=== PATIENT | male | born 1955 | race African-American/Black ===

== ENCOUNTER → 2016-08-15 | Outpatient (CLI) | payer MEDICAID ==
--- NOTE | 2016-08-15 09:10 | ST Modified Barium Swallow ---
Recommendation - Recommendations Recommendations: 1) ST recommends continue current diet, however pt reports self limiting due to bloating and globus sensation in chest. 2) Consider GI referal due to reported symptoms for sticking in chest, bloating immediately after eating, and "gassy all day". SUMMARY: Pt observed to have flash penetration on large sequential sips of thin by straw, however no other instances of penetration observed during study. No aspiration observed during study. Safe and effective swallow seen. No oral or pharyngeal residuals observed. Medical Diagnoses - Medical Diagnoses Medical Diagnosis Description & ICD-10 Code(s): cebtrilobular emphysema/ dysphagia Other Medical Diagnoses/Co-Morbidities: cebtrilobular emphysema, sleep apnea, COPD, HTN, oxygen dependence. - ICD-10 Tx Diagnosis Coding (1) Dysphagia, unspecified ICD-10 Code(s): R13.10 - DYSPHAGIA, UNSPECIFIED ST Modified Barium Swallow - General Date: 08/15/16 Referring Physician: Dr Shi Risks/Precautions: Falls - pt using wheelchair to get to room Date of Onset: 02/13/16 Reason for Referral: dysphagia - History History obtained from: Patient, Parent/Caregiver - pt's -: Medical - Pt reports feels "backed up" when eating. States needs to eat "standing up and leaning over". Pt also reports he feels like a "blown up balloon." Pt denies coughing or choking while eating, reports globus sensation in upper chest which he states he feels "slowly moving down." Pt reports symptoms have been ongoing for several years however "got real bad" approximately 6 months ago. Pt reports history of walking PNA within the year and bronchitis a "few weeks ago." Pt reports having an unknown study completed where they identified that he was "filled with gas". Pt reports immediately after eating he will be gassy. PMHx:cebtrilobular emphysema, sleep apnea, COPD, HTN, oxygen dependence. Medications: pt and pt's unsure of current meds being taken; able to state taking x3 meds for high blood pressure, pill for reflux, zoloft, and chantix Allergies: grass, latex - Functional Status Prior Functional Status: INDEPENDENT: feeding Current Functional Limitations: feeding - Subjective Patient/caregiver goal(s): safe swallow, r/o aspiration Cognitive-Linguistic Function: WNL Speech Intelligibility: WNL Current Nutritional Means: PO Current PO diet: Soft Current symptoms: c/o Globus sensation Pain: 2/5 - due to pain in chest - Objective Assessment: Upright, Left Lateral - Food Trials Used Food trials used: Thin liquids, Pureed, Regular The patient: Was Able to Self Feed - Oral-Motor Skills Velo-pharyngeal function: Unremarkable Laryngeal Function: Volitional Cough, Volitional Swallow - Assessment Oral prep: Normal Labial closure: Adequate Leakage: None Mastication: Adequate Lingual Movement: Normal Oral stage: Normal for this Procedure - Pharyngeal Stage Initiation of Pharyngeal Stage Reflex: Normal Decreased laryngeal elevation: No Reduced Velopharyngeal Closure: no Reduced pressure generation: No reduced tongue-based retraction: No Pre-swallow pooling in valleculae: None Pre-Swallow pooling in pyriforms: None Reduced Thyro-Hyoid approximation: No Reduced epiglottic excursion: No Reduced pharyngeal peristalsis/contraction: No Post-swallow residulas vallecular: None Post-Swallow residuals in pyriforms: None - Fall Risk Assessment Medications/Conditions that increase fall risks include: Antidepressants, sedatives, anti-arrhythmic, diuretic, benzodiazipenes, neuroleptics. BP regulation problems, cardiac problems, balance or gait deficits, neurological problems. Is patient considered at risk for falls: yes Fall Risk Actions Taken: Pt physician notified - Behavioral Observations During evaluation process patient: was pleasant, was cooperative, able to answer questions, provided medical history - Treatment / Educational Needs: Treatment/Education Needs: Treatment consisted of patient education on the role of the Speech Pathologist. Patient's plan of care and golas were communicated as well as scheduling and attendance policies. Recommendations for initial home program were shared. Patient demonstrated understanding and verbalized agreement. - Impression/Summary Laryngeal Penetration: Yes - x1, Flash Tracheal Aspiration: no Patient presents with: Normal swallow at eval - safe and effective swallow observed Risk of Aspiration: Minimal - Recommendations NPO: no Strict aspiration precautions: No Pt/Family education and followup with MD: Yes Dysphagia therapy with CERTIFIED FORKLIFT OPERATOR: no Recommended techniques: Fully Upright During Meal Information, Precautions and Recommendations: Patient (Verbal), Family Member ( Verbal) - Time Total Time: 20 - Plan of Care Strategies to optimize patient understanding include:: ongoing assessment of educational needs, implementation of educational strategies, and re-education. - - -: Thank you for the opportunity to work with this patient and his/her family. Should you have any questions about this patient's plan or progress, I can be reached at [phone]. Charge G Code? - - -: No
== END ==
LOC: RAD 07:27
PROVIDERS: ATTEND Internal Medicine Pulmonary Disease
DX: J43.2 Centrilobular emphysema (principal); J96.11 Chronic respiratory failure with hypoxia; R13.10 Dysphagia, unspecified
CPT/HCPCS: 74230

== ENCOUNTER 2016-09-16 19:36 | Emergency (ER) | payer MEDICAID ==
[2016-09-16 20:14] LABS: ABSOLUTE EOSINOPHILS # (AUTO) 0.2 10^3/uL (0.0-0.6); ABSOLUTE LYMPHOCYTES (AUTO) 2.3 10^3/uL (0.5-4.7); ABSOLUTE MONOCYTES (AUTO) 0.8 10^3/uL (0.1-1.4); ABSOLUTE NEUT (AUTO) 4.1 10^3/uL (1.7-8.2); BASOPHILS % (AUTO) 0.5 % (0-2); EOSINOPHILS % (AUTO) 2.5 % (0-6); HEMATOCRIT 44.5 % (37.9-51.0); HEMOGLOBIN 15.2 g/dL (13.5-17.0); HGB HCT DIFFERENCE 1.1; LYMPHOCYTES % (AUTO) 30.7 % (13-45); MEAN CORPUSCULAR HEMOGLOBIN 31.6 pg (27.0-33.4); MEAN CORPUSCULAR HGB CONC 34.2 g/dL (32.0-36.0); MEAN CORPUSCULAR VOLUME 92 fl (80-97); MONOCYTES % (AUTO) 10.6 % (3-13); RED BLOOD COUNT 4.82 10^6/uL (4.35-5.55); RED CELL DISTRIBUTION WIDTH 13.4 % (11.5-14.0); SEGMENTED NEUTROPHILS % (AUTO) 55.7 % (42-78); VENOUS BLOOD BASE EXCESS 2.6 mmol/L; VENOUS BLOOD HCO3 29.9 mmol/L (20-32); VENOUS BLOOD PCO2 55.7 mmHg (35-63); VENOUS BLOOD PH 7.35 (7.30-7.42); WHITE BLOOD COUNT 7.4 10^3/uL (4.0-10.5)
[2016-09-16 20:32] LABS: ALANINE AMINOTRANSFERASE 55 U/L (21-72); ALBUMIN 4.7 g/dL (3.5-5.0); ALKALINE PHOSPHATASE 60 U/L (38-126); ANION GAP 17 (5-19); ASPARTATE AMINO TRANSFERASE 35 U/L (17-59); BILIRUBIN,TOTAL 0.3 mg/dL (0.2-1.3); BLOOD UREA NITROGEN 11 mg/dL (7-20); CALCIUM 10.1 mg/dL (8.4-10.2); CARBON DIOXIDE 28 mmol/L (22-30); CHLORIDE 96 mmol/L (98-107); CREATININE RESULT 0.69 mg/dL (0.52-1.25); GLUCOSE 118 mg/dL (75-110); MAGNESIUM 1.9 mg/dL (1.6-2.3); POTASSIUM 3.6 mmol/L (3.6-5.0); SODIUM 141.4 mmol/L (137-145)
--- NOTE | 2016-09-16 20:44 | ER Document Report ---
ED General - General TRAVEL OUTSIDE OF THE [place] IN LAST 30 DAYS: No <BALJINDER PINEDO - Last Filed: 09/16/16 20:44> <LAURI GARCIA - Last Filed: 09/16/16 22:08> - General Chief Complaint: Altered Mental Status Stated Complaint: ALTERED MENTAL STATUS - Related Data Allergies/Adverse Reactions: Grass Pollen-[place], Standard * [Grass Pollen-[place], Standard] Allergy ( Severe, Verified 05/10/16 09:22) ITCHING latex [Latex] Adverse Reaction (Severe, Verified 05/10/16 09:22) ITCHING Past Medical History - Social History Smoking Status: Current Every Day Smoker Family History: Reviewed & Not Pertinent Patient has suicidal ideation: No Patient has homicidal ideation: No - Past Medical History Cardiac Medical History: Reports: Hx Coronary Artery Disease - HIGH CHOLESTEROL , Hx Hypertension Denies: Hx Heart Attack Pulmonary Medical History: Reports: Hx Bronchitis, Hx COPD, Hx Pneumonia Denies: Hx Asthma Neurological Medical History: Denies: Hx Cerebrovascular Accident, Hx Seizures Renal/ Medical History: Denies: Hx Peritoneal Dialysis GI Medical History: Denies: Hx Hepatitis, Hx Hiatal Hernia, Hx Ulcer Musculoskeltal Medical History: Denies Hx Arthritis Infectious Medical History: Denies: Hx Hepatitis Past Surgical History: Denies: Hx Open Heart Surgery, Hx Pacemaker - Immunizations Hx Diphtheria, Pertussis, Tetanus Vaccination: No <BALJINDER PINEDO - Last Filed: 09/16/16 20:44> Course - Laboratory Result Diagrams: 09/16/16 19:46 09/16/16 19:46 <BALJINDER PINEDO - Last Filed: 09/16/16 20:44> - Laboratory Result Diagrams: 09/16/16 19:46 09/16/16 19:46 <LAURI GARCIA - Last Filed: 09/16/16 22:08> - Re-evaluation Re-evalutation: 09/16/16 20:44 I personally performed the services described in the documentation, reviewed and edited the documentation which was dictated to my scribe in my presence, and it accurately records my words and actions. Patient presents via EMS nurse comes to get me at bedside stating patient has altered mental status and I immediately came to the bedside for evaluation patient was hooked up to oxygen but no oxygen attached 93% on room air. Patient smells of alcohol but is awake alert GCS of 15. He says breathing gets really bad he remembers being pulled over by the police. The story that I'm getting is that a bystander saw him swerving called the police and the police chased him down pulled over and had him come to the [facility] for evaluation. Initial vitals on the chart do not match what I'm seeing at the bedside. The pulse ox was written down to 60% on room air patient is awake alert again 93% on no oxygen respiratory rate is accurate 20 heart rate varies from 8200. Asking her to do a manual blood pressure blood pressure at discharge documented as 147/105 at the bedside at 136/86. Patient has a history of severe COPD on 3 L of oxygen 24 7 and CPAP. He says he also takes Ativan for anxiety but ran out of it was postictal it filled today. He does smell of alcohol but denies taking any alcohol tonight. He also denies being on any pain medication or other altering substances. 09/16/16 22:05 Charge nurse came to me and stated that 8 walked out of the department and left. I last assessment of him at 2039 for was that he was awake alert with a GCS of 15 and able to make his own decisions. He is not under IVC I cannot have him arrested and brought back to the emergency Department at this point. I performed an initial medical screening examination on him. Vitals were stable no acute concerns for cardiac event concerns for bleed into the brain. 09/16/16 22:07 (LAURI GARCIA) - Vital Signs Vital signs: Temp Pulse Resp BP Pulse Ox 18 94 09/16/16 20:01 09/16/16 20:01 (BALJINDER PINEDO) (LAURI GARCIA) - Laboratory Laboratory results interpreted by me: 09/16/16 09/16/16 19:46 21:30 Carbonic Acid 1.56 H ABG pCO2 51.8 H ABG pO2 110.2 H ABG HCO3 29.2 H ABG Total CO2 30.8 H Chloride 96 L Glucose 118 H (BALJINDER PINEDO) (LAURI GARCIA) - EKG Interpretation by Me Additional EKG results interpreted by me: 09/16/16 20:46 EKG shows A. fib at [address] segment elevation or depression no acute clinical concerns for MD (LAURI GARCIA) Discharge <BALJINDER PINEDO - Last Filed: 09/16/16 20:44> <LAURI GARCIA - Last Filed: 09/16/16 22:08> - Discharge Clinical Impression: elopement, brought in via ems evaluation Condition: Stable Disposition: ELOPED
[2016-09-16 20:56] LABS: CREATINE KINASE MB 2.02 ng/mL (<4.55)
--- NOTE | 2016-09-16 21:04 | EKG REPORT ---
SEVERITY:- ABNORMAL ECG - NSR WITH PAC LVH BY VOLTAGE CONSIDER ANTEROSEPTAL INFARCT : Confirmed by: Roderick Lopez MD 16-Sep-2016 21:03:41
[2016-09-16 22:00] LABS: ARTERIAL BLOOD BASE EXCESS 2.7 mmol/L; ARTERIAL BLOOD O2 SATURATION 97.8 % (94-98)
--- NOTE | 2016-09-16 22:10 | ER Document Report ---
ED General - General Mode of Arrival: Medic Information source: Patient, Emergency Med Personnel TRAVEL OUTSIDE OF THE [place] IN LAST 30 DAYS: No - HPI Patient complains to provider of: Difficulty Breathing Onset: This evening Associated symptoms: Other - see above <BALJINDER PINEDO - Last Filed: 09/16/16 23:52> <LAURI GARCIA - Last Filed: 09/17/16 00:07> - General Chief Complaint: Altered Mental Status Stated Complaint: ALTERED MENTAL STATUS Notes: 61 year old male with history of hypertension and COPD presents to the ED via EMS in an altered mental status after being found weaving through traffic by [employer] earlier this evening. Patient states that he remembers being brought to the ED. Patient reports that he "sometimes gets really bad with my health." Patient reports that his breathing has improved since arriving to the ED. Patient on 2- 3L of oxygen around the clock. Patient is also on CPAP at night. Patient claims he takes his hypertensive medication as directed. Patient is also on Ativan and states that he last took it a "couple days ago." Patient denies being on any pain medications. Patient's primary care provider is Dr. Newell. (BALJINDER PINEDO) - Related Data Allergies/Adverse Reactions: Grass Pollen-[place], Standard * [Grass Pollen-[place], Standard] Allergy ( Severe, Verified 05/10/16 09:22) ITCHING latex [Latex] Adverse Reaction (Severe, Verified 05/10/16 09:22) ITCHING Past Medical History - General Information source: Patient, Emergency Med Personnel - Social History Smoking Status: Current Every Day Smoker Frequency of alcohol use: Occasional Family History: Reviewed & Not Pertinent Patient has suicidal ideation: No Patient has homicidal ideation: No - Past Medical History Cardiac Medical History: Reports: Hx Coronary Artery Disease - HIGH CHOLESTEROL , Hx Hypertension Pulmonary Medical History: Reports: Hx Bronchitis, Hx COPD, Hx Pneumonia Renal/ Medical History: Denies: Hx Peritoneal Dialysis - Immunizations Hx Diphtheria, Pertussis, Tetanus Vaccination: No <BALJINDER PINEDO - Last Filed: 09/16/16 23:52> Review of Systems - Review of Systems Constitutional: No symptoms reported EENT: No symptoms reported Cardiovascular: No symptoms reported Respiratory: See HPI, Short of breath Gastrointestinal: No symptoms reported Genitourinary: No symptoms reported Male Genitourinary: No symptoms reported Musculoskeletal: No symptoms reported Skin: No symptoms reported Hematologic/Lymphatic: No symptoms reported Neurological/Psychological: No symptoms reported -: Yes All other systems reviewed and negative <BALJINDER PINEDO - Last Filed: 09/16/16 23:52> Physical Exam - General General appearance: Alert, Other - Smells of ETOH. Patient will not comment on driving episode that occurred this evening. In distress: None - HEENT Head: Normocephalic, Atraumatic Eyes: Normal Extraocular movements intact: Yes Pupils: PERRL - Respiratory Respiratory status: No respiratory distress Breath sounds: Wheezing - tight expiratory wheezes. No: Normal - Cardiovascular Rhythm: Regular Heart sounds: Normal auscultation - Abdominal Inspection: Normal - Back Back: Normal - Extremities General upper extremity: Normal inspection, Normal ROM General lower extremity: Normal inspection, Normal ROM, Normal weight bearing - Neurological Neuro grossly intact: Yes Cognition: Normal Orientation: AAOx4 Guevara Coma Scale Eye Opening: Spontaneous Guevara Coma Scale Verbal: Oriented [place] Coma Scale Motor: Obeys Commands [place] Coma Scale Total: 15 Speech: Normal - Psychological Associated symptoms: Normal affect, Normal mood - Skin Skin Temperature: Warm Skin Moisture: Dry Skin Color: Normal <BALJINDER PINEDO - Last Filed: 09/16/16 23:52> <LAURI GARCIA - Last Filed: 09/17/16 00:07> - Vital signs Vitals: Resp Pulse Ox 25 H 99 09/16/16 19:38 09/16/16 19:38 (BALJINDER PINEDO) (LAURI GARCIA) Course - Laboratory Result Diagrams: 09/16/16 19:46 09/16/16 19:46 <BALJINDER PINEDO - Last Filed: 09/16/16 23:52> - Laboratory Result Diagrams: 09/16/16 19:46 09/16/16 19:46 <LAURI GARCIA - Last Filed: 09/17/16 00:07> - Re-evaluation Re-evalutation: 09/17/16 00:00 I personally performed the services described in the documentation, reviewed and edited the documentation which was dictated to my scribe in my presence, and it accurately records my words and actions. Patient initially seen and evaluated and then left the department came back to the emergency department approximately 10 minutes later. Patient is intoxicated was found swerving on the road please EMS brought him in. He is a smoker chronic COPD on 3 L of oxygen at home is currently satting 92% on 3 L says he has not oxygen take at home. I nose cough not taking his allergy medication he denies actively being short of breath and is insistent that he is going home at this point he is call his for a ride. He denies any chest pain or pressure heart rate is slightly elevated and irregular patient does not want medication for that noncompliant on home medication for history of that. This point patient is awake alert able to make his own decision refuses to stay in the department any longer says that his doesn't pick him up is critical for CAD. Does not know worsening of his at we'll have to discuss that with the police in a.m. (LAURI GARCIA) - Vital Signs Vital signs: Temp Pulse Resp BP Pulse Ox 18 94 09/16/16 20:01 09/16/16 20:01 (BALJINDER PINEDO) (LAURI GACRIA) - Laboratory Laboratory results interpreted by me: 09/16/16 09/16/16 19:46 21:30 Carbonic Acid 1.56 H ABG pCO2 51.8 H ABG pO2 110.2 H ABG HCO3 29.2 H ABG Total CO2 30.8 H Chloride 96 L Glucose 118 H (BALJINDER PINEDO) (LAURI GARCIA) Discharge <BALJINDER PINEDO - Last Filed: 09/16/16 23:52> <LAURI GARCIA - Last Filed: 09/17/16 00:07> - Discharge Clinical Impression: COPD exacerbation Afib Qualifiers: Atrial fibrillation type: chronic Qualified Code(s): I48.2 - Chronic atrial fibrillation Elevated ETOH level Qualifiers: Blood alcohol level: 240 mg/100 ml or more Qualified Code(s): Y90.8 - Blood alcohol level of 240 mg/100 ml or more Condition: Stable Disposition: HOME, SELF-CARE Additional Instructions: Chronic Obstructive Lung Disease You have chronic obstructive lung disease (COPD). The symptoms come from emphysema (damage to small airways, with trapping of air in large sacks in the lung) and chronic bronchitis (repeated infection and damage to larger airways). The cause is almost always cigarette smoking, although dust exposure, asthma, and infections contribute. You should avoid fumes, dust, and smoke (especially tobacco smoke). Your condition will flare from time to time. There is no cure, but the symptoms can be treated. Bronchodilators (asthma medicine) are often helpful. Antibiotics help when infection is present. When shortness of breath is severe, we may prescribe cortisone medication. If medicine doesn't help enough, we can arrange for you to have an oxygen tank at home. Notify your doctor at once if sputum becomes thick, foul, or bloody, if you develop a fever or chest pain, or if your shortness of breath worsens. Atrial Fibrillation Atrial fibrillation is an abnormal heart rhythm, caused by irregular electrical circuits in the upper heart chamber. It can be caused by heart valve disease, hardening of the arteries, or metabolic problems such as thyroid disease, or may occur without a clear cause. Atrial fibrillation may occur only occasionally, or may be chronic. Atrial fibrillation often results in a very fast heart rate, with palpitations, lightheadedness, and shortness of breath. Treatment is to slow the abnormally fast rate, and to convert the rhythm back to normal, if possible. Many patients stay in atrial fibrillation for years without symptoms or complications. Your doctor will decide whether you can be converted back to a normal heart rhythm. Contact the doctor or emergency medical system at once if you develop chest pain, shortness of breath, or severe lightheadedness, or if you develop any disturbance of consciousness, problems with speech, or localized weakness. etoh abuse Prescriptions: Prednisone [Deltasone 20 mg Tablet] 3 tab PO DAILY 5 Days Forms: Smoking Cessation Education Referrals: [facility] [Provider Group] - Follow up tomorrow (in 1-2 days return to er sooner for increasing worsening or new symptoms) Scribe Documentation - Scribe Written by Karrie:: Karrie Malone, 09/16/2016, [id number] acting as scribe for :: Clement <BALJINDER PINEDO - Last Filed: 09/16/16 23:52>
[2016-09-16] MEDS ORDERED: METHYLPREDNISOLONE INJ 125 MG/2 ML SDV IV ONE (23:00)
[2016-09-17] MEDS ORDERED: METHYLPREDNISOLONE INJ 125 MG/2 ML SDV ONE (00:46)
[2016-09-17 00:51] VITALS: BP 121/89
== END 2016-09-17 00:50 | disposition home or self-care (01) ==
LOC: ER 19:36
DX: J44.1 Chronic obstructive pulmonary disease with (acute) exacerbation (principal); I48.2 Chronic atrial fibrillation; Y90.8 Blood alcohol level of 240 mg/100 ml or more; R41.82 Altered mental status, unspecified; F17.200 Nicotine dependence, unspecified, uncomplicated; R06.00 Dyspnea, unspecified; I10 Essential (primary) hypertension; E78.00 Pure hypercholesterolemia, unspecified; Z99.81 Dependence on supplemental oxygen; Z91.040 Latex allergy status
CPT/HCPCS: 93005; 99285; 96374; 36415; 82553; 80307; 82803 ×2; 82550; 83735; 85025; 80053; 84484; 83880; 71010; 70450; 93010; 36600; J2930

== ENCOUNTER → 2016-11-26 | Outpatient (CLI) | payer MEDICAID | LOC: RAD 07:37 | PROVIDERS: ATTEND Family Medicine | DX: R10.11 Right upper quadrant pain (principal) | CPT/HCPCS: 78227; A9537; Q9969; J2805 ==

== ENCOUNTER → 2018-01-14 | Outpatient (CLI) | payer MEDICARE, MEDICAID ==
--- NOTE | 2018-01-14 12:52 | RADIOLOGY REPORT (SQ) ---
EXAM DESCRIPTION: RIBS LEFT W/PA CHEST COMPLETED DATE/TIME: 01/14/2018 11:53 am REASON FOR STUDY: PLEURODYNIA R07.81 PLEURODYNIA COMPARISON: Two-view chest 09/16/2016 CT chest 06/03/2016 TECHNIQUE: Frontal view of the chest and additional views of the left lower ribs acquired. NUMBER OF VIEWS: PA chest, left rib detail five views LIMITATIONS: None. FINDINGS: FRONTAL CXR: No pneumothorax. No pleural effusion. No atelectasis or infiltrates. Upper lobes are hyperlucent from obstructive disease. Cardiac silhouette size, raghav unremarkable RIBS: No displaced rib fractures. No lytic or blastic bony lesions. Bones are osteopenic OTHER: No other significant finding. IMPRESSION: NO PNEUMOTHORAX. NO ACUTE DISPLACED LEFT RIB FRACTURES. COMMENT: SITE OF TRAUMA/COMPLAINT MARKED/STAMP COMPLETED: Yes TECHNICAL DOCUMENTATION: JOB ID: [id number] [employer]- All Rights Reserved Reading location - IP/workstation name: [email or web address]
== END ==
LOC: RAD 11:30
PROVIDERS: ATTEND Family Medicine
DX: R07.81 Pleurodynia (principal)

== ENCOUNTER → 2018-02-20 | Outpatient (CLI) | payer MEDICARE, MEDICAID ==
--- NOTE | 2018-02-20 11:29 | RADIOLOGY REPORT (SQ) ---
EXAM DESCRIPTION: U/S RETROPERITON LTD COMPLETED DATE/TIME: 02/20/2018 10:57 am REASON FOR STUDY: AAA (I71.4) I71.4 ABDOMINAL AORTIC ANEURYSM, WITHOUT RUPTURE COMPARISON: None. TECHNIQUE: Static and dynamic grayscale images acquired of the aorta and stored on PACs. Selected co francisco Doppler and spectral images recorded. LIMITATIONS: None. FINDINGS: AORTIC CALIBER MAXIMAL PROXIMAL: 3.1 x 3.3 x 2.7 cm. MID: 3.7 x 4.6 x 3.7 cm. DISTAL: Obscured by bowel gas. Cm. ILIAC DIAMETER RIGHT: Not able be seen. Cm. LEFT: Not able to be seen. Cm. OTHER: No other significant finding. IMPRESSION: Aneurysm of the mid abdominal aorta. COMMENT: Aorta screening examinations categories: Negative - less than 3 cm. TECHNICAL DOCUMENTATION: JOB ID: [id number] [employer]- All Rights Reserved Reading location - IP/workstation name: [email or web address]
== END ==
LOC: RAD 10:11
PROVIDERS: ATTEND Family Medicine
DX: I71.4 Abdominal aortic aneurysm, without rupture (principal)
CPT/HCPCS: 76775

== ENCOUNTER 2019-09-04 11:17 | Emergency (ER) | payer MEDICARE, MEDICAID ==
--- NOTE | 2019-09-04 11:28 | ER Document Report ---
ED Medical Screen (RME) - General Chief Complaint: Breathing Difficulty Stated Complaint: DIFFICULTY BREATHING Time Seen by Provider: 09/04/19 11:26 Primary Care Provider: EVELYN HIGUERA DO [Primary Care Provider] - Follow up as needed Mode of Arrival: Wheelchair Information source: Patient Notes: 64-year-old male presented to ED for complaint of shortness of breath. He is on 2.5 L of nasal cannula O2. His pulse ox is 95% on this oxygen. Pulse is 78 at this time. He states he is having a very moist heavy cough. He has emphysema COPD but he states he just recently got discharged for 21-day rehab for alcohol. He has not had any alcohol or cigarettes since he came out 6 days ago but has not had any alcohol or cigarettes for 30 days. Patient is alert and oriented he is pursed breathing and is very short of breath. I have greeted and performed a rapid initial assessment of this patient. A comprehensive ED assessment and evaluation of the patient, analysis of test results and completion of medical decision making process will be conducted by an additional ED providers. TRAVEL OUTSIDE OF THE [place] IN LAST 30 DAYS: No - Related Data Allergies/Adverse Reactions: Grass Pollen-[place], Standard * [Grass Pollen-[place], Standard] Allergy (Severe, Verified 05/10/16 09:22) ITCHING latex [Latex] Adverse Reaction (Severe, Verified 05/10/16 09:22) ITCHING Past Medical History - Past Medical History Cardiac Medical History: Reports: Hx Coronary Artery Disease - HIGH CHOLESTEROL, Hx Hypertension Denies: Hx Heart Attack Pulmonary Medical History: Reports: Hx Bronchitis, Hx COPD, Hx Pneumonia Denies: Hx Asthma Neurological Medical History: Denies: Hx Cerebrovascular Accident, Hx Seizures Renal/ Medical History: Denies: Hx Peritoneal Dialysis GI Medical History: Denies: Hx Hepatitis, Hx Hiatal Hernia, Hx Ulcer Musculoskeltal Medical History: Denies Hx Arthritis Infectious Medical History: Denies: Hx Hepatitis Past Surgical History: Denies: Hx Open Heart Surgery, Hx Pacemaker - Immunizations Hx Diphtheria, Pertussis, Tetanus Vaccination: No Physical Exam - Vital signs Vitals: Temp Pulse Resp BP Pulse Ox 97.8 F 79 32 H 128/75 H 92 09/04/19 11:22 09/04/19 11:22 09/04/19 11:22 09/04/19 11:22 09/04/19 11:22 Course - Vital Signs Vital signs: Temp Pulse Resp BP Pulse Ox 97.8 F 79 32 H 128/75 H 92 09/04/19 11:22 09/04/19 11:22 09/04/19 11:22 09/04/19 11:22 09/04/19 11:22 Doctor's Discharge - Discharge Referrals: EVELYN HIGUERA DO [Primary Care Provider] - Follow up as needed
--- NOTE | 2019-09-04 12:07 | RADIOLOGY REPORT (SQ) ---
EXAM DESCRIPTION: CHEST 2 VIEWS COMPLETED DATE/TIME: 09/04/2019 11:57 am REASON FOR STUDY: Cough congestion short of breath COMPARISON: 12/30/2013. NUMBER OF VIEWS: Two view. TECHNIQUE: Frontal and lateral radiographic views of the chest acquired. LIMITATIONS: None. FINDINGS: LUNGS AND PLEURA: No opacities, masses or pneumothorax. No pleural effusion. Attenuated bl ood vessels and flattened magnolia-diaphragms. MEDIASTINUM AND HILAR STRUCTURES: No masses. No contour abnormalities. HEART AND VASCULAR STRUCTURES: Heart normal in size and contour. No evidence for failure. BONES: No acute findings. HARDWARE: None in the chest. OTHER: No other significant finding. IMPRESSION: COPD. NO ACUTE RADIOGRAPHIC FINDING IN THE CHEST. TECHNICAL DOCUMENTATION: JOB ID: [id number] [employer]- All Rights Reserved Reading location - IP/workstation name: [email or web address]
[2019-09-04 12:24] LABS: ABSOLUTE EOSINOPHILS # (AUTO) 0.3 10^3/uL (0.0-0.6); ABSOLUTE LYMPHOCYTES (AUTO) 1.1 10^3/uL (0.5-4.7); ABSOLUTE MONOCYTES (AUTO) 0.6 10^3/uL (0.1-1.4); ABSOLUTE NEUT (AUTO) 3.5 10^3/uL (1.7-8.2); BASOPHILS % (AUTO) 0.9 % (0-2); EOSINOPHILS % (AUTO) 5.5 % (0-6); HEMATOCRIT 40.5 % (37.9-51.0); HEMOGLOBIN 13.3 g/dL (13.5-17.0); LYMPHOCYTES % (AUTO) 19.1 % (13-45); MEAN CORPUSCULAR HEMOGLOBIN 29.3 pg (27.0-33.4); MEAN CORPUSCULAR HGB CONC 32.8 g/dL (32.0-36.0); MEAN CORPUSCULAR VOLUME 90 fl (80-97); MONOCYTES % (AUTO) 11.2 % (3-13); PLATELET COUNT 286 10^3/uL (150-450); RED BLOOD COUNT 4.52 10^6/uL (4.35-5.55); RED CELL DISTRIBUTION WIDTH 14.1 % (11.5-14.0); SEGMENTED NEUTROPHILS % (AUTO) 63.3 % (42-78); TOTAL CELLS COUNTED % (AUTO) 100 %; WHITE BLOOD COUNT 5.5 10^3/uL (4.0-10.5)
[2019-09-04 12:39] LABS: ALBUMIN 4.3 g/dL (3.5-5.0); ALKALINE PHOSPHATASE 66 U/L (38-126); ASPARTATE AMINO TRANSFERASE 25 U/L (17-59); BILIRUBIN,DIRECT 0.3 mg/dL (0.0-0.4); BILIRUBIN,TOTAL 0.3 mg/dL (0.2-1.3); BLOOD UREA NITROGEN 15 mg/dL (7-20); CALCIUM 9.6 mg/dL (8.4-10.2); CHLORIDE 88 mmol/L (98-107); GLUCOSE 87 mg/dL (75-110)
[2019-09-04 12:45] LABS: ANION GAP 10 (5-19)
[2019-09-04 12:49] LABS: CARBON DIOXIDE 40 mmol/L (22-30)
[2019-09-04 14:01] LABS: APPEARANCE,URINE CLEAR; BILIRUBIN,URINE NEGATIVE (NEGATIVE); COLOR,URINE YELLOW; GLUCOSE, URINE NEGATIVE (NEGATIVE); KETONES,URINE NEGATIVE (NEGATIVE); PROTEIN,URINE NEGATIVE (NEGATIVE); URINE SPECIFIC GRAVITY 1.018; UROBILINOGEN,URINE NEGATIVE mg/dL (<2.0)
[2019-09-04] MEDS ORDERED: IPRATROPIUM/ALBUTEROL 0.5-2.5 MG/3 ML AMPUL NEB ONE (14:39)
[2019-09-04] MEDS ORDERED: METHYLPREDNISOLONE INJ 125 MG/2 ML SDV IV ONE (14:40)
--- NOTE | 2019-09-04 14:43 | ER Document Report ---
ED Respiratory Problem - General Chief Complaint: Breathing Difficulty Stated Complaint: DIFFICULTY BREATHING Time Seen by Provider: 09/04/19 11:26 Primary Care Provider: EVELYN HIGUERA DO [Primary Care Provider] - Follow up as needed Mode of Arrival: Wheelchair Notes: Patient is a 64-year-old male who presents to the emergency department with a chief complaint of shortness of breath. Patient started feeling short of breath 4 days ago. Patient is oxygen dependent on 2 L nasal cannula. Patient has history of COPD. He has had a cough since he started feeling short of breath. Patient states that he has a nebulizer at home, but it is currently in storage and has not been able to give himself any breathing treatments. He is currently on Symbicort. He was recently seen for alcohol rehab. He was there for 21 days. TRAVEL OUTSIDE OF THE [place] IN LAST 30 DAYS: No - Related Data Allergies/Adverse Reactions: Grass Pollen-[place], Standard * [Grass Pollen-[place], Standard] Allergy (Severe, Verified 09/04/19 11:26) ITCHING latex [Latex] Adverse Reaction (Severe, Verified 09/04/19 11:26) ITCHING Past Medical History - General Information source: Patient - Social History Smoking Status: Never Smoker Chew tobacco use (# tins/day): No Frequency of alcohol use: None Drug Abuse: None Family History: Reviewed & Not Pertinent Patient has suicidal ideation: No Patient has homicidal ideation: No - Past Medical History Cardiac Medical History: Reports: Hx Coronary Artery Disease - HIGH CHOLESTEROL, Hx Hypertension Denies: Hx Heart Attack Pulmonary Medical History: Reports: Hx Bronchitis, Hx COPD, Hx Pneumonia Denies: Hx Asthma Neurological Medical History: Denies: Hx Cerebrovascular Accident, Hx Seizures Renal/ Medical History: Denies: Hx Peritoneal Dialysis GI Medical History: Denies: Hx Hepatitis, Hx Hiatal Hernia, Hx Ulcer Musculoskeletal Medical History: Denies Hx Arthritis Infectious Medical History: Denies: Hx Hepatitis Past Surgical History: Denies: Hx Open Heart Surgery, Hx Pacemaker - Immunizations Hx Diphtheria, Pertussis, Tetanus Vaccination: No Physical Exam - Vital signs Vitals: Temp Pulse Resp BP Pulse Ox 97.8 F 79 32 H 128/75 H 92 09/04/19 11:22 09/04/19 11:22 09/04/19 11:22 09/04/19 11:22 09/04/19 11:22 Course - Vital Signs Vital signs: Temp Pulse Resp BP Pulse Ox 97.8 F 79 32 H 128/75 H 92 09/04/19 11:22 09/04/19 11:22 09/04/19 11:22 09/04/19 11:22 09/04/19 11:22 - Laboratory Result Diagrams: 09/04/19 12:01 09/04/19 12:01 Laboratory results interpreted by me: 09/04/19 09/04/19 09/04/19 12:01 12:01 13:38 Hgb 13.3 L RDW 14.1 H Chloride 88 L Carbon Dioxide 40 H* Urine Ascorbic Acid 40 H Discharge - Discharge Referrals: EVELYN HIGUERA DO [Primary Care Provider] - Follow up as needed
[2019-09-04 15:30] LABS: ARTERIAL BLOOD BASE EXCESS 14.6 mmol/L; ARTERIAL BLOOD FIO2 3.5L; ARTERIAL BLOOD H2CO3 2.01 mmol/L (1.05-1.35); ARTERIAL BLOOD HCO3 42.2 mmol/L (20-24); ARTERIAL BLOOD O2 SATURATION 94.4 % (94-98); ARTERIAL BLOOD PCO2 66.8 mmHg (35-45); ARTERIAL BLOOD PH 7.42 (7.35-7.45); ARTERIAL BLOOD PO2 73.2 mmHg (80-100); ARTERIAL BLOOD TOTAL CO2 44.2 mmol/L (23-27)
--- NOTE | 2019-09-04 15:32 | ER Document Report ---
ED General - General Chief Complaint: Breathing Difficulty Stated Complaint: DIFFICULTY BREATHING Time Seen by Provider: 09/04/19 11:26 Primary Care Provider: EVELYN NEWELL DO [Primary Care Provider] - Follow up as needed Mode of Arrival: Wheelchair TRAVEL OUTSIDE OF THE [place] IN LAST 30 DAYS: No - HPI Notes: Mr. Contreras is a 64-year-old male presenting with a chief complaint of breathing difficulties. This man has a longstanding history of COPD with oxygen dependency 3 L/min. He is followed by Dr. Newell. He just got out of alcohol rehab where he has been for the last 21 days. He has developed a dry cough and increasing dyspnea on exertion and now some mild dyspnea at rest. He denies chest pain. He is not producing any sputum. He denies fever or chills. Patient is a past smoker. He was previously taking DuoNeb treatments at home bu t his nebulizer machine was packed up and he does not have access to it currently because he is in the process of moving. - Related Data Allergies/Adverse Reactions: Grass Pollen-[place], Standard * [Grass Pollen-[place], Standard] Allergy (Severe, Verified 09/04/19 11:26) ITCHING latex [Latex] Adverse Reaction (Severe, Verified 09/04/19 11:26) ITCHING Past Medical History - General Information source: Patient, Relative - Social History Smoking Status: Never Smoker Chew tobacco use (# tins/day): No Frequency of alcohol use: None Drug Abuse: None Family History: Reviewed & Not Pertinent Patient has suicidal ideation: No Patient has homicidal ideation: No - Past Medical History Cardiac Medical History: Reports: Hx Coronary Artery Disease - HIGH CHOLESTEROL, Hx Hypertension Denies: Hx Heart Attack Pulmonary Medical History: Reports: Hx Bronchitis, Hx COPD, Hx Pneumonia Denies: Hx Asthma Neurological Medical History: Denies: Hx Cerebrovascular Accident, Hx Seizures Renal/ Medical History: Denies: Hx Peritoneal Dialysis GI Medical History: Denies: Hx Hepatitis, Hx Hiatal Hernia, Hx Ulcer Musculoskeletal Medical History: Denies Hx Arthritis Infectious Medical History: Denies: Hx Hepatitis Past Surgical History: Denies: Hx Open Heart Surgery, Hx Pacemaker - Immunizations Hx Diphtheria, Pertussis, Tetanus Vaccination: No Review of Systems - Review of Systems Notes: Constitutional: Negative for fever. HENT: Negative for sore throat. Eyes: Negative for visual changes. Cardiovascular: Negative for chest pain. Respiratory: As per HPI. Gastrointestinal: Negative for abdominal pain, vomiting or diarrhea. Genitourinary: Negative for dysuria. Musculoskeletal: Negative for back pain. Skin: Negative for rash. Neurological: Negative for headaches, weakness or numbness. 10 point ROS negative except as marked above and in HPI. Physical Exam - Vital signs Vitals: Temp Pulse Resp BP Pulse Ox 97.8 F 79 32 H 128/75 H 92 09/04/19 11:22 09/04/19 11:22 09/04/19 11:22 09/04/19 11:22 09/04/19 11:22 - Notes Notes: GENERAL: Male patient of approximately stated age who appears mildly dyspneic. SKIN: Good turgor no rashes. HEAD: Normocephalic atraumatic. EYES: PERRLA. EOMI. Conjunctivae and sclerae clear. EARS: CANALS AND TMS CLEAR. NOSE: CLEAR. MOUTH: Moist mucosa. Good dentition. No stridor or edema. No drooling. NECK: Supple. No masses or thyromegaly. No adenopathy. Carotids 2+ without bruits. No JVD. BACK: Symmetrical without tenderness. CHEST: Rattling cough. Mildly tachypneic. Scattered faint wheezes and rhonchi bilaterally.. HEART: Regular rhythm. No murmur gallop or rub. ABDOMEN: Soft nontender without masses, organomegaly or rebound. Bowel sounds normally active. No bruits. GENITALIA: Deferred. EXTREMITIES: 1+ bilateral pretibial edema. No calf tenderness. Cap refill less than 1.5 seconds. Dorsalis pedis and posterior tibial pulses 3+ and symmetrical. NEUROLOGICAL: GCS 15. Alert and oriented x3. Normal gait. Fluent speech. Cranial nerves II through XII intact. Sensorimotor and cerebellar normal. Normal tone. PSYCHIATRIC: Appropriate affect. Course - Re-evaluation Re-evalutation: 09/04/19 15:32 Patient is receiving IV Solu-Medrol and DuoNeb treatment. ABG pending. 09/04/19 16:48 Patient feels much better after IV steroids and DuoNeb treatment. He has minimal faint wheezes now and has good saturation on his usual 3.5 L of O2. His arterial blood gas shows pH of 7.42 with PCO2 of 66 and a PO2 of 76 who has some chronic respiratory failure. His troponin is normal. His BNP is normal. I am going to get him a prescription for an albuterol metered-dose inhaler and some oral prednisone sending home to follow-up with his PMD. - Vital Signs Vital signs: Temp Pulse Resp BP Pulse Ox 97.8 F 79 19 137/91 H 96 09/04/19 11:22 09/04/19 11:22 09/04/19 16:06 09/04/19 16:06 09/04/19 16:11 - Laboratory Result Diagrams: 09/04/19 12:01 09/04/19 12:01 Laboratory results interpreted by me: 09/04/19 09/04/19 09/04/19 12:01 12:01 13:38 Hgb 13.3 L RDW 14.1 H Carbonic Acid ABG pCO2 ABG pO2 ABG HCO3 ABG Total CO2 Chloride 88 L Carbon Dioxide 40 H* Urine Ascorbic Acid 40 H 09/04/19 15:13 Hgb RDW Carbonic Acid 2.01 H ABG pCO2 66.8 H ABG pO2 73.2 L ABG HCO3 42.2 H ABG Total CO2 44.2 H Chloride Carbon Dioxide Urine Ascorbic Acid - Diagnostic Test Radiology reviewed: Reports reviewed - Per radiologist plain film of the chest s hows COPD with no focal infiltrate. - EKG Interpretation by Me Additional EKG results interpreted by me: 09/04/19 16:46 Twelve-lead EKG from 1601 hrs. reviewed contemporaneously by me. This shows a normal sinus rhythm with an old anteroseptal DC and no acute ST changes. Rate is 85 and his QRS axis is 49 degrees. Discharge - Discharge Clinical Impression: COPD exacerbation Chronic respiratory failure Qualifiers: Respiratory failure complication: hypoxia and hypercapnia Qualified Code(s): J96.11 - Chronic respiratory failure with hypoxia; J96.12 - Chronic respiratory failure with hypercapnia Condition: Stable Disposition: HOME, SELF-CARE Additional Instructions: Careful and try to use prescription medications as directed. Follow-up with your primary care physician as soon as possible. Return here as needed for new or worsening symptoms: Deterioration of your breathing status Pain that is worsening or unimproved Uncontrolled vomiting High fever or shaking chills Overall worsening. Prescriptions: Prednisone [Deltasone 20 mg Tablet] 2 tab PO DAILY 5 Days tablet Albuterol Sulfate [Proair HFA Inhalation Aerosol 8.5 gm MDI] 2 puff IH Q4H PRN #1 mdi PRN Reason: Referrals: EVELYN NEWELL DO [Primary Care Provider] - Follow up as needed
[2019-09-04 16:29] VITALS: BP 137/91
[2019-09-04 16:42] LABS: A TYPE INFLUENZA AG NEGATIVE (NEGATIVE); B INFLUENZA AG NEGATIVE (NEGATIVE)
--- NOTE | 2019-09-04 20:39 | EKG REPORT ---
SEVERITY:- ABNORMAL ECG - SINUS RHYTHM CONSIDER ANTEROSEPTAL INFARCT : Confirmed by: Roderick Lopez MD 04-Sep-2019 20:37:47
== END 2019-09-04 17:03 | disposition home or self-care (01) ==
LOC: ER 11:17
DX: J44.1 Chronic obstructive pulmonary disease with (acute) exacerbation (principal); J96.11 Chronic respiratory failure with hypoxia; Z99.81 Dependence on supplemental oxygen; R05 Cough; R60.0 Localized edema; I25.10 Atherosclerotic heart disease of native coronary artery without angina pectoris; I10 Essential (primary) hypertension; Z87.01 Personal history of pneumonia (recurrent); Z91.048 Other nonmedicinal substance allergy status
CPT/HCPCS: 93005; 94640; 99285; 96374; 36415; 87040; 82803; 85025; 80053; 81001; 87804; 83880; 71046; 93010; J2930; A9270; J7620

== ENCOUNTER 2020-05-07 16:23 | Inpatient (IN) | payer MEDICARE, MEDICAID ==
[2020-05-07] MEDS ORDERED: PROPOFOL 1,000 MG/100 ML INFUS..BTL IV PRN ×2 (16:37→17:37)
[2020-05-07] MEDS ORDERED: ALBUTEROL SULFATE 0.083% NEB 2.5 MG/3 ML AMPUL NEB STA (16:38)
--- NOTE | 2020-05-07 16:41 | ER Document Report ---
ED General - General Chief Complaint: Respiratory Distress Stated Complaint: RESPIRATORY FAILURE Time Seen by Provider: 05/07/20 16:35 Primary Care Provider: EVELYN HIGUERA DO [Primary Care Provider] - Follow up as needed TRAVEL OUTSIDE OF THE [place] IN LAST 30 DAYS: No - HPI Notes: 65-year-old male presents after respiratory failure. Information is provided initially via EMS report. Call was out for COPD exacerbation. They state that on arrival patient was tripod breathing and respiratory distress and had a silent chest. Initial saturation 72% on 6 L nasal cannula. He was given a DuoNeb in his home which had a mild improvement in lung sounds. However then when patient got up to ambulate to the stretcher, he then had a decompensation in his respiratory status and was "cyanotic with ambulation". He was started on CPAP. During transport reportedly patient ripped off his mask and then appeared to fall asleep. EMS then elected to intubate. Intubated with a 7.0 ETT, given 150 mg ketamine and 150 mg rocuronium. In total he was given 2 DuoNebs and 1 Xopenex neb, 125 mg Solu-Medrol, 2 mg magnesium. - Related Data Allergies/Adverse Reactions: Grass Pollen-[place], Standard * [Grass Pollen-[place], Standard] Allergy ( Severe, Verified 09/04/19 11:26) ITCHING latex [Latex] Adverse Reaction (Severe, Verified 09/04/19 11:26) ITCHING Past Medical History - General Information source: Relative, Emergency Med Personnel - Social History Smoking Status: Current Every Day Smoker Lives with: Family Family History: Other - Unable to obtain at this time - Past Medical History Cardiac Medical History: Reports: Hx Coronary Artery Disease - HIGH CHOLESTEROL, Hx Hypertension Denies: Hx Heart Attack Pulmonary Medical History: Reports: Hx Bronchitis, Hx COPD, Hx Pneumonia Denies: Hx Asthma Neurological Medical History: Denies: Hx Cerebrovascular Accident, Hx Seizures Renal/ Medical History: Denies: Hx Peritoneal Dialysis GI Medical History: Denies: Hx Hepatitis, Hx Hiatal Hernia, Hx Ulcer Musculoskeletal Medical History: Denies Hx Arthritis Infectious Medical History: Denies: Hx Hepatitis Past Surgical History: Denies: Hx Open Heart Surgery, Hx Pacemaker - Immunizations Hx Diphtheria, Pertussis, Tetanus Vaccination: No Review of Systems - Review of Systems -: Yes ROS unobtainable due to patient's medical condition Physical Exam - Vital signs Vitals: Pulse Ox 100 05/07/20 16:30 - General General appearance: Unresponsive - HEENT Head: Normocephalic, Atraumatic Conjunctiva: Purulent discharge Pupils: PERRL Mouth/Lips: No: Angioedema Neck: Other - No JVD - Respiratory Notes: Intubated. After initial tube traction, breath sounds present bilaterally. Overall decreased airflow. Prolonged expiration. No rales. - Cardiovascular Rhythm: Tachycardia Heart sounds: Normal auscultation Pulses: Normal: Radial, Dorsalis pedis Normal capillary refill: Yes - Abdominal Notes: Soft - Extremities General upper extremity: Normal temperature General lower extremity: Normal temperature. No: Edema - Neurological Notes: Patient still under effect of paralytic. Currently GCS 3T. Pupils are equal and reactive. - Psychological Associated symptoms: Other - Unable to assess - Skin Skin Temperature: Warm Course - Re-evaluation Re-evalutation: 65-year-old male arrives intubated via EMS for shortness of breath. Hypoxic on 6L nasal cannula and hypercarbic to the 80s per report. Received nebulization treatments, steroids and magnesium. He was subsequently intubated after not tolerating CPAP. On arrival it was apparent that the tube was deep as we cannot see any markings and he had no breath sounds on the left side, tube was immediately retracted and left side sounds appeared. He does have very poor overall airflow. Likely COPD exacerbation. He does not appear edematous, per chart review does not have any documented CHF. Concern for potential viral cause, Covid and influenza swabs ordered. Bacteria a possibility as well. We will keep on the vent. Start propofol for sedation. Start continuous albuterol. 05/07/20 16:55 Spoke with patient's and son. They state that today patient was complaining that he could not breathe, it was more difficult than usual. They noticed that he started to have respiratory distress. They are unsure of how much oxygen he supposed to be in, he typically turns it up and down. State he has stage IV COPD, continues to smoke every day. They report some concern for noncompliance with medication. Has a history of alcohol abuse, recently went to rehab and was prescribed a medication to stop drinking, believe that he is either not taking this or using it incorrectly. They are unsure of how much he drinks daily, though states that he does have access to alcohol. He additionally took a trazodone today. He was otherwise his normal state of health yesterday. Family members are currently not sick. 05/07/20 17:09 Had early discussion with ICU attending Dr. Wilson for admission, will come malissa patient 05/07/20 17:48 No leukocytosis or left shift. Chronic anemia. Potassium mildly low, IV replacement ordered. Creatinine within normal limits. No elevation of LFTs. Troponin negative. Ethanol undetectable. Slight lactic acidosis at 2.4. There is a partially compensated respiratory acidosis, pH 7.33, PCO2 91.9 and measured bicarb 44 No consolidation on chest x-ray, ET tube above yesenia 05/07/20 17:57 Patient to be admitted to ICU - Vital Signs Vital signs: Temp Pulse Resp BP Pulse Ox 17 184/102 H 98 05/07/20 17:31 05/07/20 17:31 05/07/20 17:31 - Laboratory Result Diagrams: 05/07/20 16:34 05/07/20 16:34 Laboratory results interpreted by me: 05/07/20 05/07/20 05/07/20 16:34 16:34 16:34 RBC 3.95 L Hgb 11.7 L Hct 34.3 L RDW 15.5 H Carbonic Acid ABG pH ABG pCO2 ABG pO2 ABG HCO3 ABG Total CO2 ABG O2 Saturation Potassium 3.4 L Chloride 88 L Carbon Dioxide 44 H* Glucose 117 H Lactic Acid 2.4 H Magnesium 3.0 H 05/07/20 16:34 RBC Hgb Hct RDW Carbonic Acid 2.77 H ABG pH 7.33 L ABG pCO2 91.9 H* ABG pO2 211.6 H ABG HCO3 46.8 H ABG Total CO2 49.6 H ABG O2 Saturation 99.3 H Potassium Chloride Carbon Dioxide Glucose Lactic Acid Magnesium - Diagnostic Test Radiology reviewed: Image reviewed, Reports reviewed - EKG Interpretation by Me When compared to previous EKG there are: Changes noted Additional EKG results interpreted by me: EKG is interpreted by me. Sinus tachycardia, rate 143. Narrow QRS, QTC within normal limits. Precordial ST segment depression, suspect rate related. No ST segment elevation. Critical Care Note - Critical Care Note Total time excluding time spent on procedures (mins): 35 - Acute hypercapnic respiratory failure, management of ET tube Discharge - Discharge Clinical Impression: Acute on chronic respiratory failure with hypercapnia, Hypokalemia, Alcohol abuse, Current every day smoker COPD (chronic obstructive pulmonary disease) Qualifiers: COPD type: unspecified COPD Qualified Code(s): J44.9 - Chronic obstructive pulmonary disease, unspecified Condition: Serious Disposition: ADMITTED INPATIENT Unit Admitted: ICU Referrals: EVELYN HIGUERA DO [Primary Care Provider] - Follow up as needed
[2020-05-07 16:50] LABS: ABSOLUTE EOSINOPHILS # (AUTO) 0.1 10^3/uL (0.0-0.6); ABSOLUTE LYMPHOCYTES (AUTO) 1.1 10^3/uL (0.5-4.7); ABSOLUTE MONOCYTES (AUTO) 0.4 10^3/uL (0.1-1.4); ABSOLUTE NEUT (AUTO) 3.6 10^3/uL (1.7-8.2); BASOPHILS % (AUTO) 0.3 % (0-2); HEMATOCRIT 34.3 % (37.9-51.0); HEMOGLOBIN 11.7 g/dL (13.5-17.0); LYMPHOCYTES % (AUTO) 21.1 % (13-45); MEAN CORPUSCULAR HEMOGLOBIN 29.7 pg (27.0-33.4); MEAN CORPUSCULAR HGB CONC 34.2 g/dL (32.0-36.0); MEAN CORPUSCULAR VOLUME 87 fl (80-97); MONOCYTES % (AUTO) 7.7 % (3-13); PLATELET COUNT 215 10^3/uL (150-450); RED BLOOD COUNT 3.95 10^6/uL (4.35-5.55); RED CELL DISTRIBUTION WIDTH 15.5 % (11.5-14.0); SEGMENTED NEUTROPHILS % (AUTO) 68.9 % (42-78); TOTAL CELLS COUNTED % (AUTO) 100 %; WHITE BLOOD COUNT 5.2 10^3/uL (4.0-10.5)
[2020-05-07 17:06] LABS: ALBUMIN 3.8 g/dL (3.5-5.0); ALKALINE PHOSPHATASE 51 U/L (38-126); ASPARTATE AMINO TRANSFERASE 33 U/L (17-59); BILIRUBIN,DIRECT 0.2 mg/dL (0.0-0.4); BILIRUBIN,TOTAL 0.2 mg/dL (0.2-1.3); BLOOD UREA NITROGEN 15 mg/dL (7-20); CALCIUM 8.9 mg/dL (8.4-10.2); CHLORIDE 88 mmol/L (98-107); GLUCOSE 117 mg/dL (75-110); PHOSPHORUS 3.4 mg/dL (2.5-4.5); POTASSIUM 3.4 mmol/L (3.6-5.0); TOTAL PROTEIN 6.5 g/dL (6.3-8.2)
[2020-05-07 17:12] LABS: ANION GAP 11 (5-19)
[2020-05-07 17:14] LABS: CARBON DIOXIDE 44 mmol/L (22-30)
[2020-05-07] MEDS ORDERED: POTASSI CL 20 MEQ/50 ML RIDER 20 MEQ/50 ML RTUPB IV ONE (17:16)
[2020-05-07 17:20] LABS: ARTERIAL BLOOD BASE EXCESS 16.2 mmol/L; ARTERIAL BLOOD FIO2 15L; ARTERIAL BLOOD H2CO3 2.77 mmol/L (1.05-1.35); ARTERIAL BLOOD HCO3 46.8 mmol/L (20-24); ARTERIAL BLOOD O2 SATURATION 99.3 % (94-98); ARTERIAL BLOOD PH 7.33 (7.35-7.45); ARTERIAL BLOOD PO2 211.6 mmHg (80-100); ARTERIAL BLOOD TOTAL CO2 49.6 mmol/L (23-27)
[2020-05-07 17:21] LABS: ARTERIAL BLOOD PCO2 91.9 mmHg (35-45)
--- NOTE | 2020-05-07 17:25 | RADIOLOGY REPORT (SQ) ---
EXAM DESCRIPTION: CHEST SINGLE VIEW IMAGES COMPLETED DATE/TIME: 05/07/2020 4:08 pm REASON FOR STUDY: bed 5 post intubation COMPARISON: 09/04/2019 EXAM PARAMETERS: NUMBER OF VIEWS: One view. TECHNIQUE: Single frontal radiographic view of the chest acquired. RADIATION DOSE: NA LIMITATIONS: None. FINDINGS: LUNGS AND PLEURA: Lungs are hyperinflated. No focal consolidation or pleural effusion. N o pneumothorax. MEDIASTINUM AND HILAR STRUCTURES: No masses. Contour normal. HEART AND VASCULAR STRUCTURES: Heart normal in size. Normal vasculature. BONES: No acute findings. HARDWARE: Endotracheal tube tip is in the midthoracic trachea about 6 cm above the yesenia. Esophagog astric tube tip is below the diaphragm with side hole in the distal esophagus. OTHER: No other significant finding. IMPRESSION: Hyperinflated lungs which can be seen with obstructive lung disease. No focal consolida tion or pleural effusion. Endotracheal tube is in the midthoracic trachea. Esophagogastric tube tip is below the diaphragm likely in the stomach with side hole in the distal esophagus. TECHNICAL DOCUMENTATION: JOB ID: [id number] [employer]- All Rights Reserved Reading location - IP/workstation name: [email or web address]
[2020-05-07] MEDS ORDERED: ONDANSETRON HCL INJ/PF 4 MG/2 ML SDV IV PRN (17:45)
[2020-05-07] MEDS ORDERED: PHARMACY COMMUNICATION ORDER MC NR (17:45)
[2020-05-07] MEDS ORDERED: ACETAMINOPHEN 325 MG TABLET NG PRN (17:45)
[2020-05-07] MEDS ORDERED: LORAZEPAM INJ 2 MG/1 ML VIAL IV PRN (17:53)
[2020-05-07] MEDS ORDERED: PROPOFOL INJ 200 MG/20 ML VIAL IV ONE (18:04)
--- NOTE | 2020-05-07 18:05 | CRITICAL CARE ADMISSION REPORT ---
HPI Date:: 05/07/20 Time:: 17:30 Reason for ICU Reason:: COPD exacerbation and intubated Admission Date/Time & PCP: Admission Date/Time: Primary Care Provider: EVELYN HIGUERA DO HPI: This patient is a 65 yo man with long standing COPD said to be on home O2 who called EMS for SOB. He got worse on bipap and was intubated on the way in. He is stable hemodynamically. See Dr. Shi as out patient. Has a hx of past ETOH abuse, in rehab Aug 2019. Unknown if still abstinent. History obtained from:: Old records, Dr Fierro. - Diagnosis/Plan (1) Acute on chronic respiratory failure with hypercapnia Is this a current diagnosis for this admission?: Yes Plan: His pCO2 is 91 with a pH of 7.3. Bicarb 44 indicating chronic CO2 retention. Given this history and mental status changes on ride in, I agree with in tubation. First intubation I can see in records. (2) Alcohol abuse Is this a current diagnosis for this admission?: Yes Plan: In rehab in Aug. Not known if he is still drinking. Give ativan PRN. (3) COPD (chronic obstructive pulmonary disease) Qualifiers: COPD type: unspecified COPD Qualified Code(s): J44.9 - Chronic obstructive pulmonary disease, unspecified Is this a current diagnosis for this admission?: Yes Plan: He will receive solumedrol, nebulizers Plan Summary: Hope to wean soon as tolerated. Past Medical History Cardiac Medical History: Reports: Coronary Artery Disease - HIGH CHOLESTEROL, Hypertension Denies: Myocardial Infarction Pulmonary Medical History: Reports: Bronchitis, Chronic Obstructive Pulmonary Disease (COPD), Pneumonia Denies: Asthma Neurological Medical History: Denies: Seizures GI Medical History: Denies: Hepatitis, Hiatal Hernia Musculoskeltal Medical History: Denies: Arthritis Hematology: Denies: Anemia, Sickle Cell Disease Past Surgical History Past Surgical History: Denies: Pacemaker Social/Family History - Social History Lives with: Family Smoking Status: Current Every Day Smoker - Medication/Allergies Home Medications: Albuterol Sulfate [Albuterol Sulfate Hfa] 8.5 gm IH ASDIR PRN 07/06/13 Amlodipine Besylate [Norvasc 10 mg Tablet] 10 mg PO DAILY 07/06/13 Budesonide/Formoterol Fumarate [Symbicort HFA 80-4.5 mcg Inhaler 6.9 gm] 2 puff IH ASDIR PRN 07/06/13 Chlorthalidone [Chlorthalidone 25 mg Tablet] 1 tab PO DAILY 07/06/13 Doxazosin Mesylate 2 mg PO QHS 07/06/13 Fluticasone/Salmeterol [Advair 250-50 Diskus 14 Dose/Diskus] 1 inh IH Q12H 07/06/13 Prednisone [Deltasone 20 mg Tablet] 3 tab PO DAILY 5 Days tablet 09/17/16 Albuterol Sulfate [Proair HFA Inhalation Aerosol 8.5 gm MDI] 2 puff IH Q4H PRN #1 mdi 09/04/19 Prednisone [Deltasone 20 mg Tablet] 2 tab PO DAILY 5 Days tablet 09/04/19 Allergies/Adverse Reactions: Grass Pollen-[place], Standard * [Grass Pollen-[place], Standard] Allergy (Severe, Verified 09/04/19 11:26) ITCHING latex [Latex] Adverse Reaction (Severe, Verified 09/04/19 11:26) ITCHING Review of Systems ROS unobtainable: Due to endotracheal tube, Due to mental status Physical Exam Vital Signs: Temp Pulse Resp BP Pulse Ox 17 184/102 H 98 05/07/20 17:31 05/07/20 17:31 05/07/20 17:31 Intake & Output 05/06/20 05/07/20 05/08/20 06:59 06:59 06:59 Weight 87.9 kg Weight/Height Weight 87.9 kg General appearance: PRESENT: no acute distress Head exam: PRESENT: atraumatic, normocephalic Eye exam: PRESENT: conjunctiva pink, EOMI, PERRLA. ABSENT: scleral icterus Ear exam: PRESENT: normal external ear exam Mouth exam: PRESENT: moist, tongue midline Respiratory exam: PRESENT: clear to auscultation lee, decreased breath sounds - Very decreased. ABSENT: rales, rhonchi, wheezes Cardiovascular exam: PRESENT: RRR. ABSENT: diastolic murmur, rubs, systolic murmur GI/Abdominal exam: PRESENT: normal bowel sounds, soft. ABSENT: distended, guarding, mass, organolmegaly, rebound, tenderness Rectal exam: PRESENT: deferred Extremities exam: PRESENT: full ROM. ABSENT: calf tenderness, clubbing, pedal edema Musculoskeletal exam: PRESENT: normal inspection Neurological exam: PRESENT: other - Sedated Skin exam: PRESENT: dry, intact, warm. ABSENT: cyanosis, rash Tubes/Lines: PRESENT: Endotracheal Tube, Nasogastic Tube Laboratory/Radiographs Laboratory Results: 05/07/20 16:34 05/07/20 16:34 05/07/20 05/07/20 05/07/20 16:34 16:34 16:34 WBC 5.2 RBC 3.95 L Hgb 11.7 L Hct 34.3 L MCV 87 MCH 29.7 MCHC 34.2 RDW 15.5 H Plt Count 215 Seg Neutrophils % 68.9 Carbonic Acid HCO3/H2CO3 Ratio ABG pH ABG pCO2 ABG pO2 ABG HCO3 ABG O2 Saturation ABG Base Excess FiO2 Sodium 143.2 Potassium 3.4 L Chloride 88 L Carbon Dioxide 44 H* Anion Gap 11 BUN 15 Creatinine 0.54 Est GFR ( Amer) > 60 Glucose 117 H Lactic Acid 2.4 H Calcium 8.9 Phosphorus 3.4 Magnesium 3.0 H Total Bilirubin 0.2 AST 33 Alkaline Phosphatase 51 Total Protein 6.5 Albumin 3.8 05/07/20 16:34 WBC RBC Hgb Hct MCV MCH MCHC RDW Plt Count Seg Neutrophils % Carbonic Acid 2.77 H HCO3/H2CO3 Ratio 16:1 ABG pH 7.33 L ABG pCO2 91.9 H* ABG pO2 211.6 H ABG HCO3 46.8 H ABG O2 Saturation 99.3 H ABG Base Excess 16.2 FiO2 15L Sodium Potassium Chloride Carbon Dioxide Anion Gap BUN Creatinine Est GFR ( Amer) Glucose Lactic Acid Calcium Phosphorus Magnesium Total Bilirubin AST Alkaline Phosphatase Total Protein Albumin 05/07/20 16:34 Troponin I < 0.012 Impressions: Chest X-Ray 05/07/20 16:32 IMPRESSION: Hyperinflated lungs which can be seen with obstructive lung dise ase. No focal consolidation or pleural effusion. Endotracheal tube is in the midthoracic trachea. Esophagogastric tube tip is below the diaphragm likely in the stomach with side hole in the distal esophagus. All labs, radiographs, diagnostic studies and EKGs were personally reviewed: Yes In addition, reports of radiographic and diagnostic studies were read: Yes Critical Time Critical Time (minutes): 40 -: The care of a critically ill patient is dynamic. This note represents a static moment in the admission process. Orders and treatments may be given simultaneously and urgently, and time is not inside sales account representative of the treatment process. This patient requires Critical Care secondary to life threatening organ or limb dysfunction. Without Critical Care services, the patient is at risk for increased mortality and morbidity.
[2020-05-07] MEDS ORDERED: METHYLPREDNISOLONE INJ 40 MG/1 ML SDV IV ONE (18:15)
[2020-05-07] MEDS ORDERED: MIDAZOLAM HCL 50 MG/100 ML RTUINJ ONE (19:03)
[2020-05-07] MEDS: DEXMEDETOMIDINE IN 0.9 % NACL 400 MCG/100 ML RTUPB IV PRN ×2 (19:15→22:17)
[2020-05-07] MEDS: MIDAZOLAM HCL 50 MG/100 ML RTUINJ IV PRN (19:15)
[2020-05-07 19:25] LABS: ARTERIAL BLOOD FIO2 70%; ARTERIAL BLOOD H2CO3 2.68 mmol/L (1.05-1.35); ARTERIAL BLOOD HCO3 45.1 mmol/L (20-24); ARTERIAL BLOOD O2 SATURATION 96.3 % (94-98); ARTERIAL BLOOD PH 7.32 (7.35-7.45); ARTERIAL BLOOD PO2 95.5 mmHg (80-100); ARTERIAL BLOOD TOTAL CO2 47.8 mmol/L (23-27)
[2020-05-07 19:26] LABS: ARTERIAL BLOOD PCO2 88.9 mmHg (35-45)
[2020-05-07] MEDS: RINGERS SOLUTION,LACTATED 1,000 ML IV PRN (20:00)
[2020-05-07] MEDS: ENOXAPARIN SODIUM INJ 40 MG/0.4 ML DISP.SYRIN SUBCUT SCH (20:32)
[2020-05-07] MEDS ORDERED: HYDRALAZINE HCL INJ/PF 20 MG/1 ML SDV ONE (22:25)
[2020-05-07] MEDS: FAMOTIDINE INJ/PF 20 MG/2 ML SDV IV SCH (23:47)
[2020-05-07] MEDS ORDERED: HYDRALAZINE HCL INJ/PF 20 MG/1 ML SDV IV ONE (23:59)
[2020-05-08 02:31] LABS: BLOOD UREA NITROGEN 17 mg/dL (7-20); CALCIUM 8.8 mg/dL (8.4-10.2); CHLORIDE 90 mmol/L (98-107); GLUCOSE 192 mg/dL (75-110); POTASSIUM 3.9 mmol/L (3.6-5.0)
[2020-05-08 02:37] LABS: ANION GAP 9 (5-19); CARBON DIOXIDE 38 mmol/L (22-30)
[2020-05-08] MEDS ORDERED: DEXTROSE 50%-WATER 25 GM/50 ML DISP.SYRIN IV PRN ×2 (03:16)
[2020-05-08] MEDS ORDERED: GLUCAGON,HUMAN RECOMB 1 MG INJ IM PRN (03:16)
[2020-05-08] MEDS ORDERED: DEXTROSE 40% GEL 15 GM TUBE PO PRN ×2 (03:16)
[2020-05-08] MEDS: DEXMEDETOMIDINE IN 0.9 % NACL 400 MCG/100 ML RTUPB IV PRN ×4 (03:31→20:50)
[2020-05-08 03:44] LABS: ARTERIAL BLOOD BASE EXCESS 15.1 mmol/L; ARTERIAL BLOOD H2CO3 1.84 mmol/L (1.05-1.35); ARTERIAL BLOOD HCO3 41.8 mmol/L (20-24); ARTERIAL BLOOD O2 SATURATION 92.6 % (94-98); ARTERIAL BLOOD PH 7.45 (7.35-7.45); ARTERIAL BLOOD PO2 63.3 mmHg (80-100); ARTERIAL BLOOD TOTAL CO2 43.7 mmol/L (23-27)
[2020-05-08 03:45] LABS: ARTERIAL BLOOD FIO2 40%
[2020-05-08 04:58] LABS: ABSOLUTE LYMPHOCYTES (AUTO) 0.3 10^3/uL (0.5-4.7); ABSOLUTE MONOCYTES (AUTO) 0.3 10^3/uL (0.1-1.4); LYMPHOCYTES % (AUTO) 5.2 % (13-45); SEGMENTED NEUTROPHILS % (AUTO) 89.6 % (42-78); TOTAL CELLS COUNTED % (AUTO) 100 %
[2020-05-08 05:10] LABS: ABSOLUTE NEUT (AUTO) 4.9 10^3/uL (1.7-8.2); BASOPHILS % (AUTO) 0.2 % (0-2); HEMATOCRIT 37.1 % (37.9-51.0); HEMOGLOBIN 12.5 g/dL (13.5-17.0); MEAN CORPUSCULAR HEMOGLOBIN 29.1 pg (27.0-33.4); MEAN CORPUSCULAR HGB CONC 33.6 g/dL (32.0-36.0); MEAN CORPUSCULAR VOLUME 87 fl (80-97); PLATELET COUNT 189 10^3/uL (150-450); RED BLOOD COUNT 4.28 10^6/uL (4.35-5.55); RED CELL DISTRIBUTION WIDTH 15.6 % (11.5-14.0); WHITE BLOOD COUNT 5.5 10^3/uL (4.0-10.5)
[2020-05-08 05:14] LABS: CHOLESTEROL 245.33 mg/dL (0-200); TRIGLYCERIDES 66 mg/dL (<150)
[2020-05-08 05:24] LABS: DIRECT LDL 77 mg/dL (<100)
[2020-05-08] MEDS ORDERED: METHYLPREDNISOLONE INJ 40 MG/1 ML SDV IV SCH (06:00)
[2020-05-08] MEDS: INSULIN REG, HUMAN 100 UNIT/ML 3 ML VIAL (PYX) SUBCUT SCH ×4 (06:02→23:33)
[2020-05-08] MEDS: RINGERS SOLUTION,LACTATED 1,000 ML IV PRN (06:07)
--- NOTE | 2020-05-08 07:35 | EKG REPORT ---
SEVERITY:- ABNORMAL ECG - SINUS RHYTHM BORDERLINE ST ELEVATION, ANTEROLATERAL LEADS PROLONGED QT INTERVAL CONSIDER ASMI POSSIBLY OLD : Confirmed by: Wagner Pinon 08-May-2020 07:34:23
[2020-05-08] MEDS ORDERED: ACETAMINOPHEN SOLN 325 MG/10.15 ML UDCUP NG PRN (08:09)
[2020-05-08] MEDS ORDERED: FUROSEMIDE INJ/PF 20 MG/2 ML SDV IV ONE (09:00)
[2020-05-08] MEDS: FAMOTIDINE INJ/PF 20 MG/2 ML SDV IV SCH ×2 (09:29→22:32)
[2020-05-08] MEDS: ENOXAPARIN SODIUM INJ 40 MG/0.4 ML DISP.SYRIN SUBCUT SCH (09:29)
[2020-05-08] MEDS ORDERED: AMLODIPINE BESYLATE 10 MG TABLET NG SCH (10:00)
[2020-05-08] MEDS: MIDAZOLAM HCL 50 MG/100 ML RTUINJ IV PRN (12:25)
[2020-05-08] MEDS: ENALAPRILAT DIHYDRATE INJ/PF 1.25 MG/1 ML SDV IV SCH ×2 (15:12→22:32)
[2020-05-08] MEDS: IPRATROPIUM/ALBUTEROL 0.5-2.5 MG/3 ML AMPUL NEB PRN (17:14)
[2020-05-08] MEDS ORDERED: FUROSEMIDE INJ/PF 40 MG/4 ML SDV ONE (17:15)
[2020-05-08] MEDS: METHYLPREDNISOLONE INJ 40 MG/1 ML SDV IV SCH (17:15)
[2020-05-08] MEDS ORDERED: METHYLPREDNISOLONE INJ 125 MG/2 ML SDV ONE (17:15)
[2020-05-08] MEDS ORDERED: METHYLPREDNISOLONE INJ 125 MG/2 ML SDV IV SCH (17:15)
[2020-05-08] MEDS ORDERED: FUROSEMIDE INJ/PF 40 MG/4 ML SDV IV ONE (18:00)
--- NOTE | 2020-05-08 19:10 | PDOC CRITICAL CARE PROG REPORT ---
General Date:: 05/08/20 ICU Day:: 2 Ventilator Day:: 2 Hospital Day:: 2 Resuscitation Status: Full Code Events in the past 12 to 24 Hours:: This 65-year-old -[place] male was hospitalized on 05/07/2020 with COPD exacerbation. He presented to [facility] emergency department via EMS. He was initially supported with BiPAP but required intubation in the field. He has a long history of COPD and is on long-term oxygen therapy. He is a patient established with Dr. Shi. 05/08: Remains intubated. Sedated with Versed and fentanyl. Heavily sedated, RASS -3 to -4. Hypertensive. Noted to take chlorthalidone and telmisartan at home for hypertension. ABG this a.m. 7.4 / on SIMV (VC) 14/450/58/5 + PSV 10. Reason for ICU Addmission:: COPD exacerbation and intubated - Medications: Medications reviewed and adjusted accordingly: Yes Physical Exam Vital Signs: Temp Pulse Resp BP Pulse Ox 97.3 F 86 22 H 160/68 H 99 05/08/20 12:30 05/07/20 19:15 05/08/20 12:30 05/08/20 12:30 05/08/20 12:30 Intake & Output 05/07/20 05/08/20 05/09/20 06:59 06:59 06:59 Intake Total 1280 235 Output Total 1260 625 Balance 20 -390 Weight 86.3 kg Weight/Height Weight 86.3 kg Height 1.83 m General appearance: PRESENT: no acute distress, well-developed, well-nourished Head exam: PRESENT: atraumatic, normocephalic Eye exam: PRESENT: conjunctiva pink, EOMI, PERRLA. ABSENT: scleral icterus Mouth exam: PRESENT: moist, tongue midline Neck exam: ABSENT: carotid bruit, JVD, lymphadenopathy, thyromegaly Respiratory exam: PRESENT: clear to auscultation lee. ABSENT: rales, rhonchi, wheezes Cardiovascular exam: PRESENT: RRR. ABSENT: diastolic murmur, rubs, systolic murmur Pulses: PRESENT: normal dorsalis pedis pul GI/Abdominal exam: PRESENT: normal bowel sounds, soft. ABSENT: distended, guarding, mass, organolmegaly, rebound, tenderness Gentrourinary exam: PRESENT: indwelling catheter Extremities exam: PRESENT: full ROM, pedal edema, +1 edema. ABSENT: calf tenderness, clubbing Neurological exam: PRESENT: altered, CN II-XII grossly intact. ABSENT: motor sensory deficit Psychiatric exam: ABSENT: agitated, anxious Skin exam: PRESENT: dry, intact, warm. ABSENT: cyanosis, rash Tubes/Lines: PRESENT: Endotracheal Tube Laboratory/Radiographs Laboratory Results: 05/08/20 04:35 05/08/20 01:41 05/07/20 05/07/20 05/07/20 16:34 16:34 16:34 WBC 5.2 RBC 3.95 L Hgb 11.7 L Hct 34.3 L MCV 87 MCH 29.7 MCHC 34.2 RDW 15.5 H Plt Count 215 Seg Neutrophils % 68.9 Carbonic Acid HCO3/H2CO3 Ratio ABG pH ABG pCO2 ABG pO2 ABG HCO3 ABG O2 Saturation ABG Base Excess FiO2 Sodium 143.2 Potassium 3.4 L Chloride 88 L Carbon Dioxide 44 H* Anion Gap 11 BUN 15 Creatinine 0.54 Est GFR ( Amer) > 60 Glucose 117 H Lactic Acid 2.4 H Calcium 8.9 Phosphorus 3.4 Magnesium 3.0 H Total Bilirubin 0.2 AST 33 Alkaline Phosphatase 51 Total Protein 6.5 Albumin 3.8 Triglycerides Cholesterol LDL Cholesterol Direct VLDL Cholesterol HDL Cholesterol 05/07/20 05/07/20 05/07/20 16:34 19:09 19:54 WBC RBC Hgb Hct MCV MCH MCHC RDW Plt Count Seg Neutrophils % Carbonic Acid 2.77 H 2.68 H HCO3/H2CO3 Ratio 16:1 16:1 ABG pH 7.33 L 7.32 L ABG pCO2 91.9 H* 88.9 H* ABG pO2 211.6 H 95.5 ABG HCO3 46.8 H 45.1 H ABG O2 Saturation 99.3 H 96.3 ABG Base Excess 16.2 15.0 FiO2 15L 70% Sodium Potassium Chloride Carbon Dioxide Anion Gap BUN Creatinine Est GFR ( Amer) Glucose Lactic Acid 1.2 Calcium Phosphorus Magnesium Total Bilirubin AST Alkaline Phosphatase Total Protein Albumin Triglycerides Cholesterol LDL Cholesterol Direct VLDL Cholesterol HDL Cholesterol 05/07/20 05/08/20 05/08/20 22:50 01:41 03:23 WBC RBC Hgb Hct MCV MCH MCHC RDW Plt Count Seg Neutrophils % Carbonic Acid 1.84 H HCO3/H2CO3 Ratio 22:1 ABG pH 7.45 ABG pCO2 61.0 H ABG pO2 63.3 L ABG HCO3 41.8 H ABG O2 Saturation 92.6 L ABG Base Excess 15.1 FiO2 40% Sodium 137.1 Potassium 3.9 Chloride 90 L Carbon Dioxide 38 H Anion Gap 9 BUN 17 Creatinine 0.40 L Est GFR ( Amer) > 60 Glucose 192 H Lactic Acid 1.2 Calcium 8.8 Phosphorus Magnesium 2.4 H Total Bilirubin AST Alkaline Phosphatase Total Protein Albumin Triglycerides Cholesterol LDL Cholesterol Direct VLDL Cholesterol HDL Cholesterol 05/08/20 05/08/20 04:35 04:35 WBC 5.5 RBC 4.28 L Hgb 12.5 L Hct 37.1 L MCV 87 MCH 29.1 MCHC 33.6 RDW 15.6 H Plt Count 189 Seg Neutrophils % 89.6 H Carbonic Acid HCO3/H2CO3 Ratio ABG pH ABG pCO2 ABG pO2 ABG HCO3 ABG O2 Saturation ABG Base Excess FiO2 Sodium Potassium Chloride Carbon Dioxide Anion Gap BUN Creatinine Est GFR ( Amer) Glucose Lactic Acid Calcium Phosphorus Magnesium Total Bilirubin AST Alkaline Phosphatase Total Protein Albumin Triglycerides 66 Cholesterol 245.33 H LDL Cholesterol Direct 77 VLDL Cholesterol 13.0 HDL Cholesterol 165 05/07/20 05/08/20 16:34 01:41 Troponin I < 0.012 < 0.012 Impressions: Chest X-Ray 05/07/20 16:32 IMPRESSION: Hyperinflated lungs which can be seen with obstructive lung disease. No focal consolidation or pleural effusion. Endotracheal tube is in the midthoracic trachea. Esophagogastric tube tip is below the diaphragm likely in the stomach with side hole in the distal esophagus. All labs, radiographs, diagnostic studies and EKGs were personally reviewed: Yes In addition, reports of radiographic and diagnostic studies were read: Yes Assessment and Plan - Diagnosis (1) Acute on chronic respiratory failure with hypercapnia Is this a current diagnosis for this admission?: Yes Plan: Pressure support trial today. Anticipate liberation from mechanical ventilatory support within the next 24 hours. At this time, liberation is impeded by excessive sedation (rather than any issues of respiratory mechanics and gas exchange). Extubate to BiPAP as needed. Of note, the patient corroborates that he has been advised by Dr. Shi to use nocturnal BiPAP (noncompliant). 980 update: Patient was successfully extubated. However, several hours after expiration the Patient started tripoding. He did not demonstrate oxygen desaturation; however, he demonstrated tachycardia, tachypnea and visibly labored breathing. However, this was easily relieved with BiPAP support. (2) COPD exacerbation Is this a current diagnosis for this admission?: Yes Plan: Continue Solu-Medrol 40 mg IV every 12 hours. Anticipate decreasing his Solu- Medrol dose after liberation from mechanical ventilatory support. Continue DuoNeb/Pulmicort. (3) Alcohol abuse Is this a current diagnosis for this admission?: Yes Plan: Watch closely for delirium tremens. (4) Current every day smoker Is this a current diagnosis for this admission?: Yes Critical Time Critical Time (minutes): 90 Level of Care: ICU -: 1. The care of a critical patient is a dynamic process. This note is a client representative synopsis but static in nature. The timeframe for treatments given in order is not necessarily the actual time these treatments may have been done. 2. This patient requires critical care secondary to ongoing requirements for therapy not offered or safe outside the critical care environment. Transfer to a lower level of care will result in altered life or limb morbidity and mortality. 3. Multidisciplinary rounds completed. 4. ABCDE bundle addressed.
[2020-05-08] MEDS: MORPHINE SULFATE 10 MG/ML INJ IV PRN (21:35)
[2020-05-08] MEDS ORDERED: LORAZEPAM INJ 2 MG/1 ML VIAL IV ONE (22:48)
[2020-05-08] MEDS: BUDESONIDE NEB 0.25 MG/2 ML AMPUL NEB SCH (23:33)
[2020-05-09] MEDS ORDERED: HYDRALAZINE HCL INJ/PF 20 MG/1 ML SDV IV PRN (00:17)
[2020-05-09] MEDS ORDERED: PHENOBARBITAL INJ 65 MG/ML VIAL IV ONE (00:30)
[2020-05-09] MEDS: DEXMEDETOMIDINE IN 0.9 % NACL 400 MCG/100 ML RTUPB IV PRN ×3 (01:38→11:59)
[2020-05-09] MEDS: METHYLPREDNISOLONE INJ 40 MG/1 ML SDV IV SCH ×2 (02:23→09:29)
[2020-05-09] MEDS: ENALAPRILAT DIHYDRATE INJ/PF 1.25 MG/1 ML SDV IV SCH ×4 (02:26→21:05)
[2020-05-09] MEDS ORDERED: METOPROLOL TARTRATE PF/INJ 5 MG/5 ML SDV IV ONE ×2 (03:53)
[2020-05-09 04:21] LABS: HEMATOCRIT 39.9 % (37.9-51.0); HEMOGLOBIN 13.3 g/dL (13.5-17.0); MEAN CORPUSCULAR HEMOGLOBIN 28.9 pg (27.0-33.4); MEAN CORPUSCULAR HGB CONC 33.3 g/dL (32.0-36.0); MEAN CORPUSCULAR VOLUME 87 fl (80-97); PLATELET COUNT 179 10^3/uL (150-450); RED BLOOD COUNT 4.59 10^6/uL (4.35-5.55); RED CELL DISTRIBUTION WIDTH 15.4 % (11.5-14.0); WHITE BLOOD COUNT 8.7 10^3/uL (4.0-10.5)
[2020-05-09] MEDS ORDERED: LORAZEPAM INJ 2 MG/1 ML VIAL IV ONE (04:35)
[2020-05-09 04:41] LABS: BLOOD UREA NITROGEN 19 mg/dL (7-20); CHLORIDE 87 mmol/L (98-107); GLUCOSE 144 mg/dL (75-110); PHOSPHORUS 3.8 mg/dL (2.5-4.5); POTASSIUM 3.8 mmol/L (3.6-5.0)
[2020-05-09 04:47] LABS: ANION GAP 9 (5-19); CARBON DIOXIDE 38 mmol/L (22-30)
[2020-05-09] MEDS ORDERED: PHENOBARBITAL 97.2 MG TABLET PO SCH (06:00)
[2020-05-09 06:14] LABS: ARTERIAL BLOOD BASE EXCESS 12.6 mmol/L; ARTERIAL BLOOD H2CO3 1.76 mmol/L (1.05-1.35); ARTERIAL BLOOD O2 SATURATION 98.7 % (94-98); ARTERIAL BLOOD PCO2 58.5 mmHg (35-45); ARTERIAL BLOOD PH 7.44 (7.35-7.45); ARTERIAL BLOOD PO2 136.3 mmHg (80-100); ARTERIAL BLOOD TOTAL CO2 40.8 mmol/L (23-27)
[2020-05-09 06:15] LABS: ARTERIAL BLOOD FIO2 65%
[2020-05-09] MEDS: INSULIN REG, HUMAN 100 UNIT/ML 3 ML VIAL (PYX) SUBCUT SCH ×3 (06:26→18:23)
[2020-05-09] MEDS ORDERED: PHENOBARBITAL INJ 65 MG/ML VIAL IV PRN (07:48)
[2020-05-09] MEDS: IPRATROPIUM/ALBUTEROL 0.5-2.5 MG/3 ML AMPUL NEB PRN (08:19)
[2020-05-09] MEDS: BUDESONIDE NEB 0.25 MG/2 ML AMPUL NEB SCH ×2 (08:19→21:48)
--- NOTE | 2020-05-09 08:25 | RADIOLOGY REPORT (SQ) ---
EXAM DESCRIPTION: CHEST SINGLE VIEW IMAGES COMPLETED DATE/TIME: 05/09/2020 6:06 am REASON FOR STUDY: ETT tube COMPARISON: 05/07/2020. NUMBER OF VIEWS: One view. TECHNIQUE: Single frontal radiographic view of the chest acquired. LIMITATIONS: None. FINDINGS: LUNGS AND PLEURA: No opacities, masses or pneumothorax. No pleural effusion. Attenuated bl ood vessels and flattened magnolia-diaphragms. MEDIASTINUM AND HILAR STRUCTURES: No masses. Contour normal. HEART AND VASCULAR STRUCTURES: Heart normal in size. Normal vasculature. BONES: No acute findings. HARDWARE: None in the chest. The endotracheal tube and nasogastric tube have been removed. OTHER: No other significant finding. IMPRESSION: INTERVAL REMOVAL OF THE ENDOTRACHEAL TUBE AND NASOGASTRIC TUBE. COPD. NO ACUTE RADIOGR APHIC FINDING IN THE CHEST. TECHNICAL DOCUMENTATION: JOB ID: [id number] [employer]- All Rights Reserved Reading location - IP/workstation name: [email or web address]
[2020-05-09] MEDS: THIAMINE HCL 100 MG, FOLIC ACID 1 MG in NORMAL SALINE 250 ML IV SCH (09:28)
[2020-05-09] MEDS: FAMOTIDINE INJ/PF 20 MG/2 ML SDV IV SCH ×2 (09:29→22:46)
[2020-05-09] MEDS: PHENOBARBITAL INJ 65 MG/ML VIAL IV PRN ×7 (09:29→21:05)
[2020-05-09] MEDS: FUROSEMIDE INJ/PF 20 MG/2 ML SDV IV SCH (09:29)
[2020-05-09] MEDS: ENOXAPARIN SODIUM INJ 40 MG/0.4 ML DISP.SYRIN SUBCUT SCH (09:29)
[2020-05-09] MEDS ORDERED: MULTIVITAMIN TABLET PO SCH (10:00)
[2020-05-09] MEDS: MULTIVITAMIN ORAL LIQUID 60 ML NG SCH (11:26)
[2020-05-09] MEDS ORDERED: METHYLPREDNISOLONE INJ 40 MG/1 ML SDV IV SCH (17:00)
[2020-05-09] MEDS: METHYLPREDNISOLONE INJ 125 MG/2 ML SDV IV SCH (18:23)
--- NOTE | 2020-05-09 19:25 | PDOC CRITICAL CARE PROG REPORT ---
General Date:: 05/09/20 ICU Day:: 3 Hospital Day:: 3 Resuscitation Status: Full Code Events in the past 12 to 24 Hours:: This 65-year-old -[place] male was hospitalized on 05/07/2020 with COPD exacerbation. He presented to [facility] emergency department via EMS. He was initially supported with BiPAP but required intubation in the field. He has a long history of COPD and is on long-term oxygen therapy. He is a patient established with Dr. Shi. 05/08: Remains intubated. Sedated with Versed and fentanyl. Heavily sedated, RASS -3 to -4. Hypertensive. Noted to take chlorthalidone and telmisartan at home for hypertension. ABG this a.m. 7.4 on SIMV (VC) 14/58/5 + PSV 05/09: Successfully extubated yesterday. Started having agitation and labile mood and aggressive behavior yesterday. Patient reports alcohol abuse and history of alcohol withdrawal. He also admits to heavy drinking (liquor) leading up to the current hospitalization. He got 1 dose of phenobarbital 260 mg IV overnight in addition to 2 doses of Ativan. Review of systems relevant to events:: Respiratory: COPD exacerbation Neurologic: Alcohol withdrawal. Reason for ICU Addmission:: COPD exacerbation and intubated - Medications: Medications reviewed and adjusted accordingly: Yes Physical Exam Vital Signs: Temp Pulse Resp BP Pulse Ox 97.0 F 57 L 19 126/94 H 97 05/09/20 14:01 05/09/20 14:00 05/09/20 14:01 05/09/20 14:34 05/09/20 14:01 Intake & Output 05/08/20 05/09/20 05/10/20 06:59 06:59 06:59 Intake Total 1280 2166 362.2 Output Total 1260 2935 880 Balance 20 -952 -464.8 Weight 86.3 kg 85.3 kg Weight/Height Weight 85.3 kg Height 1.83 m General appearance: PRESENT: no acute distress, well-developed, well-nourished Head exam: PRESENT: atraumatic, normocephalic Eye exam: PRESENT: conjunctiva pink, EOMI, PERRLA. ABSENT: scleral icterus Ear exam: PRESENT: normal external ear exam Mouth exam: PRESENT: dry mucosa Neck exam: ABSENT: carotid bruit, JVD, lymphadenopathy, thyromegaly Respiratory exam: PRESENT: decreased breath sounds, prolonged expiratory phas, unlabored. ABSENT: rales, rhonchi, wheezes Cardiovascular exam: PRESENT: RRR. ABSENT: diastolic murmur, rubs, systolic murmur Pulses: PRESENT: normal dorsalis pedis pul GI/Abdominal exam: PRESENT: normal bowel sounds, soft. ABSENT: distended, guarding, mass, organolmegaly, rebound, tenderness Extremities exam: PRESENT: full ROM. ABSENT: calf tenderness, clubbing, pedal edema Musculoskeletal exam: PRESENT: normal inspection. ABSENT: deformity Neurological exam: PRESENT: alert, awake, oriented to person, oriented to place, oriented to time, oriented to situation, CN II-XII grossly intact. ABSENT: m otor sensory deficit Psychiatric exam: ABSENT: agitated, anxious Laboratory/Radiographs Laboratory Results: 05/09/20 04:13 05/09/20 04:13 05/09/20 05/09/20 05/09/20 04:13 04:13 05:36 WBC 8.7 RBC 4.59 Hgb 13.3 L Hct 39.9 MCV 87 MCH 28.9 MCHC 33.3 RDW 15.4 H Plt Count 179 Carbonic Acid 1.76 H HCO3/H2CO3 Ratio 22:1 ABG pH 7.44 ABG pCO2 58.5 H ABG pO2 136.3 H ABG HCO3 39.0 H ABG O2 Saturation 98.7 H ABG Base Excess 12.6 FiO2 65% Sodium 134.3 L Potassium 3.8 Chloride 87 L Carbon Dioxide 38 H Anion Gap 9 BUN 19 Creatinine 0.54 Est GFR ( Amer) > 60 Glucose 144 H Calcium 9.0 Phosphorus 3.8 Magnesium 2.0 05/07/20 16:34 Blood Blood Culture (PCR) - Final Staphylococcus Species 05/07/20 05/08/20 05/08/20 16:34 01:41 04:35 Troponin I < 0.012 < 0.012 NT-Pro-B Natriuret Pep 74 Impressions: Chest X-Ray 05/09/20 05:00 IMPRESSION: INTERVAL REMOVAL OF THE ENDOTRACHEAL TUBE AND NASOGASTRIC TUBE. COPD. NO ACUTE RADIOGRAPHIC FINDING IN THE CHEST. All labs, radiographs, diagnostic studies and EKGs were personally reviewed: Yes In addition, reports of radiographic and diagnostic studies were read: Yes Assessment and Plan - Diagnosis (1) Acute on chronic respiratory failure with hypercapnia Is this a current diagnosis for this admission?: Yes Plan: Successfully liberated from mechanical ventilatory support. Continue BiPAP nightly. Wean FiO2 as tolerated. Patient reports that he use a 3.5 LPM via nasal cannula at baseline. (2) COPD exacerbation Is this a current diagnosis for this admission?: Yes Plan: Decrease Solu-Medrol to 60 mg IV every 12 hours. Continue DuoNeb/Pulmicort. (3) Alcohol abuse Is this a current diagnosis for this admission?: Yes (4) Current every day smoker Is this a current diagnosis for this admission?: Yes (5) Alcohol withdrawal Is this a current diagnosis for this admission?: Yes Plan: Stop benzodiazepines. Phenobarbital monotherapy for alcohol withdrawal. Critical Time Critical Time (minutes): 60 Level of Care: ICU -: 1. The care of a critical patient is a dynamic process. This note is a kiosk sales representative synopsis but static in nature. The timeframe for treatments given in order is not necessarily the actual time these treatments may have been done. 2. This patient requires critical care secondary to ongoing requirements for therapy not offered or safe outside the critical care environment. Transfer to a lower level of care will result in altered life or limb morbidity and mortality. 3. Multidisciplinary rounds completed. 4. ABCDE bundle addressed.
--- NOTE | 2020-05-09 21:29 | EKG REPORT ---
SEVERITY:- ABNORMAL ECG - SINUS TACHYCARDIA : Confirmed by: Spike Villegas MD 09-May-2020 21:28:51
[2020-05-09] MEDS: MORPHINE SULFATE 10 MG/ML INJ IV PRN (22:50)
[2020-05-10] MEDS: INSULIN REG, HUMAN 100 UNIT/ML 3 ML VIAL (PYX) SUBCUT SCH ×4 (01:17→17:13)
[2020-05-10] MEDS: PHENOBARBITAL INJ 65 MG/ML VIAL IV PRN ×3 (01:29→11:26)
[2020-05-10] MEDS: ENALAPRILAT DIHYDRATE INJ/PF 1.25 MG/1 ML SDV IV SCH ×3 (03:09→15:45)
[2020-05-10 04:19] LABS: BLOOD UREA NITROGEN 28 mg/dL (7-20); CHLORIDE 86 mmol/L (98-107); GLUCOSE 105 mg/dL (75-110); POTASSIUM 3.2 mmol/L (3.6-5.0)
[2020-05-10 04:27] LABS: ANION GAP 8 (5-19)
[2020-05-10 04:32] LABS: ARTERIAL BLOOD BASE EXCESS 13.9 mmol/L; ARTERIAL BLOOD H2CO3 1.76 mmol/L (1.05-1.35); ARTERIAL BLOOD HCO3 40.5 mmol/L (20-24); ARTERIAL BLOOD PCO2 58.4 mmHg (35-45); ARTERIAL BLOOD PH 7.46 (7.35-7.45); ARTERIAL BLOOD PO2 88.8 mmHg (80-100); ARTERIAL BLOOD TOTAL CO2 42.3 mmol/L (23-27)
[2020-05-10 04:38] LABS: ARTERIAL BLOOD FIO2 40%
[2020-05-10 04:39] LABS: CARBON DIOXIDE 40 mmol/L (22-30)
[2020-05-10] MEDS: METHYLPREDNISOLONE INJ 125 MG/2 ML SDV IV SCH ×2 (06:26→17:24)
[2020-05-10] MEDS: BUDESONIDE NEB 0.25 MG/2 ML AMPUL NEB SCH (08:03)
[2020-05-10] MEDS: IPRATROPIUM/ALBUTEROL 0.5-2.5 MG/3 ML AMPUL NEB PRN (08:03)
[2020-05-10] MEDS: THIAMINE HCL 100 MG, FOLIC ACID 1 MG in NORMAL SALINE 250 ML IV SCH (10:00)
[2020-05-10] MEDS: FUROSEMIDE INJ/PF 20 MG/2 ML SDV IV SCH (10:00)
[2020-05-10] MEDS: FAMOTIDINE INJ/PF 20 MG/2 ML SDV IV SCH ×2 (10:00→21:53)
[2020-05-10] MEDS: ENOXAPARIN SODIUM INJ 40 MG/0.4 ML DISP.SYRIN SUBCUT SCH (10:00)
[2020-05-10] MEDS: MULTIVITAMIN ORAL LIQUID 60 ML NG SCH (10:00)
[2020-05-10] MEDS ORDERED: PHENOBARBITAL 64.8 MG TABLET PO PRN ×2 (14:13→14:15)
--- NOTE | 2020-05-10 16:15 | PDOC CRITICAL CARE PROG REPORT ---
General Date:: 05/10/20 ICU Day:: 4 Hospital Day:: 4 Resuscitation Status: Full Code Events in the past 12 to 24 Hours:: This 65-year-old -[place] male was hospitalized on 05/07/2020 with COPD exacerbation. [facility] department via EMS. He was initially supported with BiPAP but required intubation in the field. He has a long history of COPD and is on long-term oxygen therapy. He is a patient established with Dr. Shi. 05/08: Remains intubated. Sedated with Versed and fentanyl. Heavily sedated, RASS -3 to -4. Hypertensive. Noted to take chlorthalidone and telmisartan at home for hypertension. ABG this a.m. 7.4 on SIMV (VC) 14/58/5 + PSV . 05/09: Successfully extubated yesterday. Started having agitation and labile mood and aggressive behavior yesterday. Patient reports alcohol abuse and history of alcohol withdrawal. He also admits to heavy drinking (liquor) leading up to the current hospitalization. He got 1 dose of phenobarbital 260 mg IV overnight in addition to 2 doses of Ativan. 05/10: Remains extubated. Uses BiPAP nightly and as needed. 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 No longer requiring Precedex. Awake, alert and oriented to time, person and place. Review of systems relevant to events:: Respiratory: COPD exacerbation Neurologic: Alcohol withdrawal. Reason for ICU Addmission:: COPD exacerbation and intubated - Medications: Medications reviewed and adjusted accordingly: Yes Physical Exam Vital Signs: Temp Pulse Resp BP Pulse Ox 98.5 F 102 H 20 132/101 H 93 05/10/20 11:57 05/10/20 11:57 05/10/20 11:57 05/10/20 11:57 05/10/20 11:57 Intake & Output 05/09/20 05/10/20 05/11/20 06:59 06:59 06:59 Intake Total 2166 362.2 251 Output Total 2935 1650 900 Balance -769 -1287.8 -649 Weight 85.3 kg 85.2 kg Weight/Height Weight 85.2 kg Height 1.83 m General appearance: PRESENT: no acute distress, well-developed, well-nourished Head exam: PRESENT: atraumatic, normocephalic Eye exam: PRESENT: conjunctiva pink, EOMI, PERRLA. ABSENT: scleral icterus Mouth exam: PRESENT: moist, tongue midline Neck exam: ABSENT: carotid bruit, JVD, lymphadenopathy, thyromegaly Respiratory exam: PRESENT: decreased breath sounds, prolonged expiratory phas. ABSENT: rales, rhonchi, wheezes Cardiovascular exam: PRESENT: RRR. ABSENT: diastolic murmur, rubs, systolic murmur Pulses: PRESENT: normal dorsalis pedis pul GI/Abdominal exam: PRESENT: normal bowel sounds, soft. ABSENT: distended, guarding, mass, organolmegaly, rebound, tenderness Extremities exam: PRESENT: full ROM. ABSENT: calf tenderness, clubbing, pedal edema Musculoskeletal exam: PRESENT: normal inspection. ABSENT: deformity Neurological exam: PRESENT: alert, awake, oriented to person, oriented to place, oriented to time, oriented to situation, CN II-XII grossly intact. ABSENT: motor sensory deficit Psychiatric exam: PRESENT: appropriate affect. ABSENT: agitated, anxious Skin exam: PRESENT: dry, intact, warm. ABSENT: cyanosis, rash Laboratory/Radiographs Laboratory Results: 05/09/20 04:13 05/10/20 03:30 05/10/20 05/10/20 03:30 04:10 Carbonic Acid 1.76 H HCO3/H2CO3 Ratio 23:1 ABG pH 7.46 H ABG pCO2 58.4 H ABG pO2 88.8 ABG HCO3 40.5 H ABG O2 Saturation 97.0 ABG Base Excess 13.9 FiO2 40% Sodium 134.2 L Potassium 3.2 L Chloride 86 L Carbon Dioxide 40 H* Anion Gap 8 BUN 28 H Creatinine 0.68 Est GFR ( Amer) > 60 Glucose 105 Calcium 9.0 Magnesium 2.2 05/07/20 19:09 Tracheal Aspirate Gram Stain - Final 05/07/20 16:34 Blood Blood Culture (PCR) - Final Staphylococcus Species 05/07/20 05/08/20 05/08/20 16:34 01:41 04:35 Troponin I < 0.012 < 0.012 NT-Pro-B Natriuret Pep 74 05/09/20 20:25 Troponin I < 0.012 NT-Pro-B Natriuret Pep Impressions: Chest X-Ray 05/09/20 05:00 IMPRESSION: INTERVAL REMOVAL OF THE ENDOTRACHEAL TUBE AND NASOGASTRIC TUBE. COPD. NO ACUTE RADIOGRAPHIC FINDING IN THE CHEST. All labs, radiographs, diagnostic studies and EKGs were personally reviewed: Yes In addition, reports of radiographic and diagnostic studies were read: Yes Assessment and Plan - Diagnosis (1) Acute on chronic respiratory failure with hypercapnia Is this a current diagnosis for this admission?: Yes Plan: * Successfully liberated from mechanical ventilatory support. * Continue BiPAP nightly and as needed. * Wean FiO2 as tolerated. Maintain SPO2 89-93%. * Patient reports that he use a 3.5 LPM via nasal cannula at baseline. (2) COPD exacerbation Is this a current diagnosis for this admission?: Yes Plan: * Decrease Solu-Medrol to 60 mg IV every 12 hours. * Continue DuoNeb/Pulmicort. (3) Alcohol withdrawal Is this a current diagnosis for this admission?: Yes Plan: * Stop benzodiazepines. * Phenobarbital monotherapy for alcohol withdrawal. Change from IV to p.o. dosing. (4) Alcohol abuse Is this a current diagnosis for this admission?: Yes Plan: * Change phenobarbital from IV to p.o. dosing. (5) Current every day smoker Is this a current diagnosis for this admission?: Yes (6) Hypertension Is this a current diagnosis for this admission?: Yes Plan: Restart home antihypertensive regimen: Chlorthalidone 25 mg p.o. daily, losartan 100 mg p.o. daily (therapeutic interchange for telmisartan 80 mg p.o. daily). Plan Summary: Okay to transfer to the floor from pulmonary standpoint. Critical Time Critical Time (minutes): 45 Level of Care: ICU -: 1. The care of a critical patient is a dynamic process. This note is a unit support representative synopsis but static in nature. The timeframe for treatments given in order is not necessarily the actual time these treatments may have been done. 2. This patient requires critical care secondary to ongoing requirements for therapy not offered or safe outside the critical care environment. Transfer to a lower level of care will result in altered life or limb morbidity and mortality. 3. Multidisciplinary rounds completed. 4. ABCDE bundle addressed.
[2020-05-10] MEDS: CHLORTHALIDONE 25 MG TABLET PO SCH (17:24)
[2020-05-10] MEDS ORDERED: LORAZEPAM 1 MG TABLET PO PRN (17:40)
[2020-05-10] MEDS: IPRATROPIUM/ALBUTEROL 0.5-2.5 MG/3 ML AMPUL NEB SCH (20:11)
[2020-05-10] MEDS: GUAIFENESIN 600 MG TABLET.SA PO SCH (21:53)
[2020-05-10] MEDS: LORAZEPAM INJ 2 MG/1 ML VIAL IV PRN (23:29)
[2020-05-11] MEDS: IPRATROPIUM/ALBUTEROL 0.5-2.5 MG/3 ML AMPUL NEB SCH ×6 (00:43→19:41)
[2020-05-11] MEDS: LORAZEPAM INJ 2 MG/1 ML VIAL IV PRN ×2 (02:10→05:50)
[2020-05-11 06:15] LABS: HEMATOCRIT 39.3 % (37.9-51.0); MEAN CORPUSCULAR HEMOGLOBIN 28.9 pg (27.0-33.4); MEAN CORPUSCULAR HGB CONC 33.1 g/dL (32.0-36.0); MEAN CORPUSCULAR VOLUME 87 fl (80-97); PLATELET COUNT 170 10^3/uL (150-450); RED BLOOD COUNT 4.51 10^6/uL (4.35-5.55); RED CELL DISTRIBUTION WIDTH 16.1 % (11.5-14.0); WHITE BLOOD COUNT 10.5 10^3/uL (4.0-10.5)
[2020-05-11 06:24] LABS: VENOUS BLOOD HCO3 46.5 mmol/L (20-32); VENOUS BLOOD PH 7.33 (7.30-7.42)
[2020-05-11 06:32] LABS: VENOUS BLOOD PCO2 90.3 mmHg (35-63)
[2020-05-11 06:39] LABS: BLOOD UREA NITROGEN 23 mg/dL (7-20); CALCIUM 9.3 mg/dL (8.4-10.2); CHLORIDE 89 mmol/L (98-107); GLUCOSE 142 mg/dL (75-110); POTASSIUM 3.2 mmol/L (3.6-5.0)
[2020-05-11 06:49] LABS: ANION GAP 6 (5-19)
[2020-05-11 06:50] LABS: CARBON DIOXIDE 41 mmol/L (22-30)
[2020-05-11 09:27] LABS: ARTERIAL BLOOD BASE EXCESS 15.9 mmol/L; ARTERIAL BLOOD H2CO3 2.43 mmol/L (1.05-1.35); ARTERIAL BLOOD HCO3 45.3 mmol/L (20-24); ARTERIAL BLOOD O2 SATURATION 92.8 % (94-98); ARTERIAL BLOOD PH 7.37 (7.35-7.45); ARTERIAL BLOOD PO2 70.9 mmHg (80-100); ARTERIAL BLOOD TOTAL CO2 47.8 mmol/L (23-27)
[2020-05-11 09:28] LABS: ARTERIAL BLOOD FIO2 4L
[2020-05-11 09:29] LABS: ARTERIAL BLOOD PCO2 80.7 mmHg (35-45)
[2020-05-11] MEDS ORDERED: PREDNISONE 20 MG TABLET PO SCH (10:00)
[2020-05-11] MEDS: FAMOTIDINE INJ/PF 20 MG/2 ML SDV IV SCH ×2 (10:59→21:23)
[2020-05-11] MEDS: ENOXAPARIN SODIUM INJ 40 MG/0.4 ML DISP.SYRIN SUBCUT SCH (10:59)
[2020-05-11] MEDS: FOLIC ACID 1 MG TABLET PO SCH (11:00)
[2020-05-11] MEDS: MULTIVITAMIN ORAL LIQUID 60 ML NG SCH (11:00)
[2020-05-11] MEDS: SERTRALINE HCL 50 MG TABLET PO SCH (11:00)
[2020-05-11] MEDS: GUAIFENESIN 600 MG TABLET.SA PO SCH ×2 (11:00→21:23)
[2020-05-11] MEDS: CHLORTHALIDONE 25 MG TABLET PO SCH (11:00)
[2020-05-11] MEDS: THIAMINE HCL 100 MG TABLET PO SCH (11:00)
[2020-05-11] MEDS: LOSARTAN POTASSIUM 50 MG TABLET PO SCH (11:00)
[2020-05-11] MEDS ORDERED: METHYLPREDNISOLONE INJ 125 MG/2 ML SDV IV ONE (11:45)
[2020-05-11] MEDS: BUDESONIDE NEB 0.25 MG/2 ML AMPUL NEB SCH ×2 (13:47→19:41)
[2020-05-11] MEDS ORDERED: PHENOBARBITAL INJ 65 MG/ML VIAL IV PRN ×2 (16:55→16:56)
[2020-05-11] MEDS ORDERED: FLUMAZENIL INJ 0.5 MG/5 ML VIAL IV ONE (17:41)
[2020-05-12] MEDS: IPRATROPIUM/ALBUTEROL 0.5-2.5 MG/3 ML AMPUL NEB SCH ×6 (00:03→20:43)
[2020-05-12 05:19] LABS: BLOOD UREA NITROGEN 16 mg/dL (7-20); CALCIUM 8.8 mg/dL (8.4-10.2); GLUCOSE 79 mg/dL (75-110)
[2020-05-12 05:46] LABS: CHLORIDE 88 mmol/L (98-107)
[2020-05-12 05:53] LABS: ANION GAP 4 (5-19)
[2020-05-12 05:55] LABS: POTASSIUM 2.9 mmol/L (3.6-5.0)
[2020-05-12 05:56] LABS: CARBON DIOXIDE 44 mmol/L (22-30)
[2020-05-12] MEDS: POTASSI CL 20 MEQ/50 ML RIDER 20 MEQ/50 ML RTUPB IV SCH ×4 (07:40→12:33)
[2020-05-12] MEDS: BUDESONIDE NEB 0.25 MG/2 ML AMPUL NEB SCH (08:00)
[2020-05-12] MEDS: MULTIVITAMIN ORAL LIQUID 60 ML NG SCH (09:29)
[2020-05-12] MEDS: FAMOTIDINE INJ/PF 20 MG/2 ML SDV IV SCH (09:29)
[2020-05-12] MEDS: METHYLPREDNISOLONE INJ 125 MG/2 ML SDV IV SCH (09:29)
[2020-05-12] MEDS: ENOXAPARIN SODIUM INJ 40 MG/0.4 ML DISP.SYRIN SUBCUT SCH (09:30)
[2020-05-12] MEDS: LOSARTAN POTASSIUM 50 MG TABLET PO SCH (09:30)
[2020-05-12] MEDS: THIAMINE HCL 100 MG TABLET PO SCH (09:30)
[2020-05-12] MEDS: CHLORTHALIDONE 25 MG TABLET PO SCH (09:31)
[2020-05-12] MEDS: SERTRALINE HCL 50 MG TABLET PO SCH (09:31)
[2020-05-12] MEDS: FOLIC ACID 1 MG TABLET PO SCH (09:31)
[2020-05-12] MEDS: GUAIFENESIN 600 MG TABLET.SA PO SCH (09:31)
--- NOTE | 2020-05-12 12:30 | PDOC CRITICAL CARE PROG REPORT ---
General Date:: 05/12/20 ICU Day:: 5 Hospital Day:: 5 Resuscitation Status: Full Code Events in the past 12 to 24 Hours:: This 65-year-old -[place] male was hospitalized on 05/07/2020 with COPD exacerbation. He presented to [facility] emergency department via EMS. He was initially supported with BiPAP but required intubation in the field. He has a long history of COPD and is on long-term oxygen therapy. He is a patient established with Dr. Shi. 05/08: Remains intubated. Sedated with Versed and fentanyl. Heavily sedated, RASS -3 to -4. Hypertensive. Noted to take chlorthalidone and telmisartan at home for hypertension. ABG this a.m. 7.4 on SIMV (VC) 14//58/5 + PSV . 05/09: Successfully extubated yesterday. Started having agitation and labile mood and aggressive behavior yesterday. Patient reports alcohol abuse and history of alcohol withdrawal. He also admits to heavy drinking (liquor) leading up to the current hospitalization. He got 1 dose of phenobarbital 260 mg IV overnight in addition to 2 doses of Ativan. 05/10: Remains extubated. Uses BiPAP nightly and as needed. 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 No longer requiring Precedex. Awake, alert and oriented to time, person and place. 05/11: The patient is seen in room 430, where the patient transferred out yesterday afternoon. Critical care service was called this morning to evaluate the patient for altered mental status. At the time of clinical encounter, the patient is on BiPAP 12/5, FiO2 40%. He is obtunded. He does arouse to sternal rub but quickly drifts back off to sleep. Review of the record reveals that the patient had his phenobarbital orders discontinued. They were replaced with Ativan orders, of which it appears he did get a 2 mg IV dose. Call was made to the nighttime air launch weapons technician reporting that a peripheral vein PCO2 was over 90. Of note, pH was 7.33. Was discussed with Dr. Singh. Also, on examination, the patient continues to have diminished breath sounds (likely typical); however, he is also demonstrating wheezing. 05/12: The patient demonstrated dramatic improvement in mental status over the course of the day simply by avoiding administration of any Ativan. By late afternoon, he was awake, conversant, able to feed himself dinner. Adherent to prescribed BiPAP 06/24, FiO2 40% during sleep. In good spirits today. On Solu- Medrol 60 mg IV daily. Review of systems relevant to events:: Respiratory: COPD exacerbation Neurologic: Alcohol withdrawal. Reason for ICU Addmission:: COPD exacerbation and intubated - Medications: Medications reviewed and adjusted accordingly: Yes Physical Exam Vital Signs: Temp Pulse Resp BP Pulse Ox 98.6 F 108 H 23 H 137/94 H 95 05/12/20 12:00 05/12/20 12:00 05/12/20 12:00 05/12/20 12:00 05/12/20 12:00 Intake & Output 05/11/20 05/12/20 05/13/20 06:59 06:59 06:59 Intake Total 1331 45 Output Total 1200 300 470 Balance 131 -300 -425 Weight 84.6 kg 83.8 kg Weight/Height Weight 83.8 kg Height 1.83 m General appearance: PRESENT: no acute distress, well-developed, well-nourished Head exam: PRESENT: atraumatic, normocephalic Eye exam: PRESENT: conjunctiva pink, EOMI, PERRLA. ABSENT: scleral icterus Mouth exam: PRESENT: moist, tongue midline Neck exam: ABSENT: carotid bruit, JVD, lymphadenopathy, thyromegaly Respiratory exam: PRESENT: decreased breath sounds, prolonged expiratory phas, wheezes. ABSENT: rales, rhonchi Cardiovascular exam: PRESENT: RRR. ABSENT: diastolic murmur, rubs, systolic murmur Pulses: PRESENT: normal dorsalis pedis pul GI/Abdominal exam: PRESENT: normal bowel sounds, soft. ABSENT: distended, guarding, mass, organolmegaly, rebound, tenderness Extremities exam: PRESENT: full ROM. ABSENT: calf tenderness, clubbing, pedal edema Musculoskeletal exam: PRESENT: normal inspection. ABSENT: deformity Neurological exam: PRESENT: alert, awake, oriented to person, oriented to place, oriented to time, oriented to situation, CN II-XII grossly intact. ABSENT: motor sensory deficit Psychiatric exam: ABSENT: agitated, anxious Skin exam: PRESENT: dry, intact, warm. ABSENT: cyanosis, rash Laboratory/Radiographs Laboratory Results: 10/22/20 05:55 05/12/20 04:27 05/12/20 04:27 Sodium 136.0 L Potassium 2.9 L* Chloride 88 L Carbon Dioxide 44 H* Anion Gap 4 L BUN 16 Creatinine 0.57 Est GFR ( Amer) > 60 Glucose 79 Calcium 8.8 05/07/20 16:34 Blood Blood Culture (PCR) - Final Staphylococcus Species 05/07/20 16:34 Blood Blood Culture - Final Staphylococcus Epidermidis 05/07/20 05/08/20 05/08/20 16:34 01:41 04:35 Troponin I < 0.012 < 0.012 NT-Pro-B Natriuret Pep 74 05/09/20 20:25 Troponin I < 0.012 NT-Pro-B Natriuret Pep Impressions: Chest X-Ray 05/09/20 05:00 IMPRESSION: INTERVAL REMOVAL OF THE ENDOTRACHEAL TUBE AND NASOGASTRIC TUBE. COPD. NO ACUTE RADIOGRAPHIC FINDING IN THE CHEST. All labs, radiographs, diagnostic studies and EKGs were personally reviewed: Yes In addition, reports of radiographic and diagnostic studies were read: Yes Assessment and Plan - Diagnosis (1) Acute on chronic respiratory failure with hypercapnia Is this a current diagnosis for this admission?: Yes Plan: * Successfully liberated from mechanical ventilatory support. * Continue BiPAP nightly and as needed. * Wean FiO2 as tolerated. Maintain SPO2 89-93%. * Patient reports that he use a 3.5 LPM via nasal cannula at baseline. (2) COPD exacerbation Is this a current diagnosis for this admission?: Yes Plan: * Continue Solu-Medrol 60 mg IV daily. * Continue DuoNeb/Pulmicort. (3) Hypertension Is this a current diagnosis for this admission?: Yes Plan: Restart home antihypertensive regimen: Chlorthalidone 25 mg p.o. daily, losartan 100 mg p.o. daily (therapeutic interchange for telmisartan 80 mg p.o. daily). (4) Current every day smoker Is this a current diagnosis for this admission?: Yes (5) Alcohol withdrawal Is this a current diagnosis for this admission?: Yes Plan: * Resolved. Plan Summary: Okay to transfer to the floor from pulmonary standpoint Critical Time Critical Time (minutes): 30 Level of Care: ICU -: 1. The care of a critical patient is a dynamic process. This note is a digital sales representative synopsis but static in nature. The timeframe for treatments given in order is not necessarily the actual time these treatments may have been done. 2. This patient requires critical care secondary to ongoing requirements for therapy not offered or safe outside the critical care environment. Transfer to a lower level of care will result in altered life or limb morbidity and mortality. 3. Multidisciplinary rounds completed. 4. ABCDE bundle addressed.
--- NOTE | 2020-05-12 12:30 | PDOC CRITICAL CARE PROG REPORT ---
General Date:: 05/11/20 ICU Day:: 1 Hospital Day:: 5 Resuscitation Status: Full Code Events in the past 12 to 24 Hours:: This 65-year-old -[place] male was hospitalized on 05/07/2020 with COPD exacerbation. He presented to [facility] emergency department via EMS. He was initially supported with BiPAP but required intubation in the field. He has a long history of COPD and is on long-term oxygen therapy. He is a patient established with Dr. Shi. 05/08: Remains intubated. Sedated with Versed and fentanyl. Heavily sedated, RASS -3 to -4. Hypertensive. Noted to take chlorthalidone and telmisartan at home for hypertension. ABG this a.m. 7.4 on SIMV (VC) 14//58/5 + PSV . 05/09: Successfully extubated yesterday. Started having agitation and labile mood and aggressive behavior yesterday. Patient reports alcohol abuse and history of alcohol withdrawal. He also admits to heavy drinking (liquor) leading up to the current hospitalization. He got 1 dose of phenobarbital 260 mg IV overnight in addition to 2 doses of Ativan. 05/10: Remains extubated. Uses BiPAP nightly and as needed. Received 2 doses of phenobarbital 130 mg IV during date night sitter. No longer requiring Precedex. Awake, alert and oriented to time, person and place. 05/11: The patient is seen in room 430, where the patient transferred out yesterday afternoon. Critical care service was called this morning to evaluate the patient for altered mental status. At the time of clinical encounter, the patient is on BiPAP 12/5, FiO2 40%. He is obtunded. He does arouse to sternal rub but quickly drifts back off to sleep. Review of the record reveals that the patient had his phenobarbital orders discontinued. They were replaced with Ativan orders, of which it appears he did get a 2 mg IV dose. Call was made to the nighttime coremaker helper reporting that a peripheral vein PCO2 was over 90. Of note, pH was 7.33. Was discussed with Dr. Singh. Also, on examination, the patient continues to have diminished breath sounds (likely typical); however, he is also demonstrating wheezing. Review of systems relevant to events:: Respiratory: COPD exacerbation Neurologic: Alcohol withdrawal. Reason for ICU Addmission:: COPD exacerbation and intubated - Medications: Medications reviewed and adjusted accordingly: Yes Physical Exam Vital Signs: Temp Pulse Resp BP Pulse Ox 97.9 F 88 12 136/85 H 99 05/10/20 23:17 05/11/20 04:35 05/11/20 04:35 05/10/20 23:17 05/11/20 04:35 Intake & Output 05/10/20 05/11/20 05/12/20 06:59 06:59 06:59 Intake Total 362.2 1331 Output Total 1650 1200 Balance -1287.8 131 Weight 85.2 kg 84.6 kg Weight/Height Weight 84.6 kg Height 1.83 m General appearance: PRESENT: no acute distress, well-developed, well-nourished, other - On BiPAP Head exam: PRESENT: atraumatic, normocephalic Eye exam: PRESENT: conjunctiva pink, EOMI, PERRLA. ABSENT: scleral icterus Neck exam: ABSENT: carotid bruit, JVD, lymphadenopathy, thyromegaly Respiratory exam: PRESENT: decreased breath sounds, prolonged expiratory phas. ABSENT: rales, rhonchi, wheezes Cardiovascular exam: PRESENT: RRR. ABSENT: diastolic murmur, rubs, systolic murmur Pulses: PRESENT: normal carotid pulses GI/Abdominal exam: PRESENT: normal bowel sounds, soft. ABSENT: distended, guarding, mass, organolmegaly, rebound, tenderness Extremities exam: PRESENT: full ROM. ABSENT: calf tenderness, clubbing, pedal edema Neurological exam: PRESENT: alert, awake, oriented to person, oriented to place, oriented to time, oriented to situation, CN II-XII grossly intact. ABSENT: motor sensory deficit Psychiatric exam: ABSENT: agitated, anxious Skin exam: PRESENT: dry, intact, warm. ABSENT: cyanosis, rash Laboratory/Radiographs Laboratory Results: 05/11/20 05:55 05/11/20 05:55 05/07/20 05/11/20 05/11/20 19:09 05:55 05:55 WBC RBC Hgb Hct MCV MCH MCHC RDW Plt Count Carbonic Acid 2.68 H HCO3/H2CO3 Ratio 16:1 ABG pH 7.32 L ABG pCO2 88.9 H* ABG pO2 95.5 ABG HCO3 45.1 H ABG O2 Saturation 96.3 ABG Base Excess 15.0 VBG pH 7.33 VBG pCO2 90.3 H* VBG HCO3 46.5 H VBG Base Excess 16.0 FiO2 70% Sodium 136.3 L Potassium 3.2 L Chloride 89 L Carbon Dioxide 41 H* Anion Gap 6 BUN 23 H Creatinine 0.61 Est GFR ( Amer) > 60 Glucose 142 H Calcium 9.3 Magnesium 2.1 TSH 05/11/20 05/11/20 05:55 05:55 WBC 10.5 RBC 4.51 Hgb 13.0 L Hct 39.3 MCV 87 MCH 28.9 MCHC 33.1 RDW 16.1 H Plt Count 170 Carbonic Acid HCO3/H2CO3 Ratio ABG pH ABG pCO2 ABG pO2 ABG HCO3 ABG O2 Saturation ABG Base Excess VBG pH VBG pCO2 VBG HCO3 VBG Base Excess FiO2 Sodium Potassium Chloride Carbon Dioxide Anion Gap BUN Creatinine Est GFR ( Amer) Glucose Calcium Magnesium TSH 0.50 05/07/20 19:09 Tracheal Aspirate Gram Stain - Final 05/07/20 19:09 Tracheal Aspirate Sputum Culture - Final Haemophilus Influenzae Normal Estrella 05/07/20 16:34 Blood Blood Culture (PCR) - Final Staphylococcus Species 05/07/20 05/08/20 05/08/20 16:34 01:41 04:35 Troponin I < 0.012 < 0.012 NT-Pro-B Natriuret Pep 74 05/09/20 20:25 Troponin I < 0.012 NT-Pro-B Natriuret Pep Impressions: Chest X-Ray 05/09/20 05:00 IMPRESSION: INTERVAL REMOVAL OF THE ENDOTRACHEAL TUBE AND NASOGASTRIC TUBE. COPD. NO ACUTE RADIOGRAPHIC FINDING IN THE CHEST. All labs, radiographs, diagnostic studies and EKGs were personally reviewed: Yes In addition, reports of radiographic and diagnostic studies were read: Yes Assessment and Plan - Diagnosis (1) Acute on chronic respiratory failure with hypercapnia Is this a current diagnosis for this admission?: Yes Plan: * Successfully liberated from mechanical ventilatory support. * Continue BiPAP nightly and as needed. * Wean FiO2 as tolerated. Maintain SPO2 89-93%. * Patient reports that he use a 3.5 LPM via nasal cannula at baseline. * Stop benzodiazepines. I have discussed this case with Dr. Singh and expressed my concern that insisting on continuing to administer benzodiazepines to this patient will put him at risk of respiratory suppression due to potentiating effects from his previous phenobarbital therapy. Consequently, we have agreed that the patient will be transferred to the ICU. (2) COPD exacerbation Is this a current diagnosis for this admission?: Yes Plan: * Decrease Solu-Medrol to 60 mg IV daily. * Continue DuoNeb/Pulmicort. (3) Alcohol withdrawal Is this a current diagnosis for this admission?: Yes Plan: * Stop benzodiazepines. * Will resume phenobarbital monotherapy for alcohol withdrawal, if needed. (4) Alcohol abuse Is this a current diagnosis for this admission?: Yes (5) Current every day smoker Is this a current diagnosis for this admission?: Yes (6) Hypertension Is this a current diagnosis for this admission?: Yes Plan: Restart home antihypertensive regimen: Chlorthalidone 25 mg p.o. daily, losartan 100 mg p.o. daily (therapeutic interchange for telmisartan 80 mg p.o. daily). Critical Time Critical Time (minutes): 60 Level of Care: ICU -: 1. The care of a critical patient is a dynamic process. This note is a automotive sales representative synopsis but static in nature. The timeframe for treatments given in order is not necessarily the actual time these treatments may have been done. 2. This patient requires critical care secondary to ongoing requirements for therapy not offered or safe outside the critical care environment. Transfer to a lower level of care will result in altered life or limb morbidity and mortality. 3. Multidisciplinary rounds completed. 4. ABCDE bundle addressed.
[2020-05-12] MEDS ORDERED: POTASSIUM CHLORIDE 20 MEQ PACKET PO ONE (12:45)
[2020-05-12 15:49] LABS: BLOOD UREA NITROGEN 11 mg/dL (7-20); CALCIUM 9.3 mg/dL (8.4-10.2); CHLORIDE 87 mmol/L (98-107); GLUCOSE 89 mg/dL (75-110)
[2020-05-12 15:58] LABS: ANION GAP 6 (5-19); POTASSIUM 3.9 mmol/L (3.6-5.0)
[2020-05-12 15:59] LABS: CARBON DIOXIDE 44 mmol/L (22-30)
[2020-05-12] MEDS ORDERED: LORAZEPAM INJ 2 MG/1 ML VIAL IV PRN (16:07)
[2020-05-12] MEDS ORDERED: LABETALOL HCL INJ 20 MG/4 ML DISP.SYRIN IV PRN (16:10)
[2020-05-12] MEDS ORDERED: IPRATROPIUM/ALBUTEROL 0.5-2.5 MG/3 ML AMPUL NEB PRN (16:11)
[2020-05-12] MEDS ORDERED: POTASSIUM CHLORIDE 10 MEQ TABLET.ER PO ONE (17:00)
[2020-05-12] MEDS: AMOXICILLIN TR/POT CLAVULANATE 500-125 MG TAB PO SCH (21:02)
[2020-05-13] MEDS: AMOXICILLIN TR/POT CLAVULANATE 500-125 MG TAB PO SCH ×3 (05:31→21:47)
[2020-05-13 06:14] LABS: ABSOLUTE EOSINOPHILS # (AUTO) 0.1 10^3/uL (0.0-0.6); ABSOLUTE LYMPHOCYTES (AUTO) 1.1 10^3/uL (0.5-4.7); ABSOLUTE MONOCYTES (AUTO) 1.6 10^3/uL (0.1-1.4); ABSOLUTE NEUT (AUTO) 5.6 10^3/uL (1.7-8.2); BASOPHILS % (AUTO) 0.2 % (0-2); EOSINOPHILS % (AUTO) 1.5 % (0-6); HEMATOCRIT 36.2 % (37.9-51.0); HEMOGLOBIN 11.9 g/dL (13.5-17.0); MEAN CORPUSCULAR VOLUME 88 fl (80-97); MONOCYTES % (AUTO) 18.7 % (3-13); PLATELET COUNT 178 10^3/uL (150-450); RED BLOOD COUNT 4.11 10^6/uL (4.35-5.55); SEGMENTED NEUTROPHILS % (AUTO) 66.6 % (42-78); TOTAL CELLS COUNTED % (AUTO) 100 %; WHITE BLOOD COUNT 8.4 10^3/uL (4.0-10.5)
[2020-05-13 06:33] LABS: ALBUMIN 3.3 g/dL (3.5-5.0); ALKALINE PHOSPHATASE 43 U/L (38-126); ASPARTATE AMINO TRANSFERASE 17 U/L (17-59); BILIRUBIN,DIRECT 0.4 mg/dL (0.0-0.4); BILIRUBIN,TOTAL 0.5 mg/dL (0.2-1.3); BLOOD UREA NITROGEN 11 mg/dL (7-20); CALCIUM 9.3 mg/dL (8.4-10.2); CHLORIDE 88 mmol/L (98-107); GLUCOSE 86 mg/dL (75-110); POTASSIUM 3.8 mmol/L (3.6-5.0)
[2020-05-13 06:39] LABS: ARTERIAL BLOOD BASE EXCESS 13.9 mmol/L; ARTERIAL BLOOD H2CO3 2.03 mmol/L (1.05-1.35); ARTERIAL BLOOD HCO3 41.6 mmol/L (20-24); ARTERIAL BLOOD O2 SATURATION 87.8 % (94-98); ARTERIAL BLOOD PCO2 67.6 mmHg (35-45); ARTERIAL BLOOD PH 7.41 (7.35-7.45); ARTERIAL BLOOD PO2 55.3 mmHg (80-100); ARTERIAL BLOOD TOTAL CO2 43.7 mmol/L (23-27)
[2020-05-13 06:43] LABS: ARTERIAL BLOOD FIO2 36%
[2020-05-13 06:43] LABS: ANION GAP 5 (5-19)
[2020-05-13 06:44] LABS: CARBON DIOXIDE 43 mmol/L (22-30)
[2020-05-13] MEDS: IPRATROPIUM/ALBUTEROL 0.5-2.5 MG/3 ML AMPUL NEB SCH ×3 (08:08→20:47)
[2020-05-13] MEDS: SERTRALINE HCL 50 MG TABLET PO SCH (09:27)
[2020-05-13] MEDS: LOSARTAN POTASSIUM 50 MG TABLET PO SCH (09:27)
[2020-05-13] MEDS: METHYLPREDNISOLONE INJ 125 MG/2 ML SDV IV SCH (09:28)
[2020-05-13] MEDS: FOLIC ACID 1 MG TABLET PO SCH (09:28)
[2020-05-13] MEDS: THIAMINE HCL 100 MG TABLET PO SCH (09:28)
[2020-05-13] MEDS: AMLODIPINE BESYLATE 5 MG TABLET PO SCH (09:28)
[2020-05-13] MEDS: FLUTICASONE/UMECLIDIN/VILANTER 100-62.5-25 MCG/DOSE IH SCH (09:30)
[2020-05-13] MEDS: ENOXAPARIN SODIUM INJ 40 MG/0.4 ML DISP.SYRIN SUBCUT SCH (09:30)
--- NOTE | 2020-05-13 10:27 | PDOC PROGRESS REPORT ---
Subjective Progress Note for:: 05/13/20 Subjective:: As per admitting physician Mr. Nii Contreras is 65-year-old -[place] male was hospitalized on 05/07/2020 with COPD exacerbation. He presented to [facility] emergency department via EMS. He was initially supported with BiPAP but required intubation in the field. He has a long history of COPD and is on long-term oxygen therapy. He is a patient established with Dr. Shi. Reason For Visit: COPD EXACERBATION REQUIRING INTUBATION Physical Exam Vital Signs: Temp Pulse Resp BP Pulse Ox 98.7 F 104 H 22 H 127/79 H 95 05/13/20 08:06 05/13/20 08:11 05/13/20 08:11 05/13/20 08:06 05/13/20 08:11 Pulse Oximeter Continuous Start: 05/12/20 12:28 Freq: RTQ4 Status: Active Protocol: Document 05/13/20 08:11 JDR (Rec: 05/13/20 08:40 JDR [id number]) Pulse Oximetry Assessment Oxygen Saturation (92-100) 95 Oxygen Flow Rate (L/min) 4 Oxygen Delivery Method Nasal Cannula Equipment Usage Equipment Standby Continuous SpO2 Machine # 1 Intake & Output 05/12/20 05/13/20 05/14/20 06:59 06:59 06:59 Intake Total 1025 Output Total 300 770 Balance -300 255 Weight 83.8 kg 83.8 kg General appearance: PRESENT: no acute distress, well-developed, well-nourished Head exam: PRESENT: atraumatic, normocephalic Respiratory exam: PRESENT: clear to auscultation lee, decreased breath sounds. ABSENT: rales, rhonchi, wheezes Cardiovascular exam: PRESENT: RRR. ABSENT: diastolic murmur, rubs, systolic murmur GI/Abdominal exam: PRESENT: normal bowel sounds, soft. ABSENT: distended, guar ding, mass, organolmegaly, rebound, tenderness Neurological exam: PRESENT: alert, awake, oriented to person, oriented to place, oriented to time, oriented to situation, CN II-XII grossly intact. ABSENT: motor sensory deficit Results Laboratory Results: 05/13/20 05:02 05/13/20 05:02 05/12/20 05/13/20 05/13/20 15:09 05:02 05:02 WBC 8.4 RBC 4.11 L Hgb 11.9 L Hct 36.2 L MCV 88 MCH 29.0 MCHC 33.0 RDW 16.0 H Plt Count 178 Seg Neutrophils % 66.6 Carbonic Acid HCO3/H2CO3 Ratio ABG pH ABG pCO2 ABG pO2 ABG HCO3 ABG O2 Saturation ABG Base Excess FiO2 Sodium 137.2 136.2 L Potassium 3.9 D 3.8 Chloride 87 L 88 L Carbon Dioxide 44 H* 43 H* Anion Gap 6 5 BUN 11 11 Creatinine 0.52 0.47 L Est GFR ( Amer) > 60 > 60 Glucose 89 86 Calcium 9.3 9.3 Total Bilirubin 0.5 AST 17 Alkaline Phosphatase 43 Total Protein 6.0 L Albumin 3.3 L 05/13/20 06:14 WBC RBC Hgb Hct MCV MCH MCHC RDW Plt Count Seg Neutrophils % Carbonic Acid 2.03 H HCO3/H2CO3 Ratio 20:1 ABG pH 7.41 ABG pCO2 67.6 H ABG pO2 55.3 L ABG HCO3 41.6 H ABG O2 Saturation 87.8 L ABG Base Excess 13.9 FiO2 36% Sodium Potassium Chloride Carbon Dioxide Anion Gap BUN Creatinine Est GFR ( Amer) Glucose Calcium Total Bilirubin AST Alkaline Phosphatase Total Protein Albumin 05/07/20 15:07 Blood Blood Culture - Final NO GROWTH IN 5 DAYS 05/07/20 05/08/20 05/08/20 16:34 01:41 04:35 Troponin I < 0.012 < 0.012 NT-Pro-B Natriuret Pep 74 05/09/20 20:25 Troponin I < 0.012 NT-Pro-B Natriuret Pep Impressions: Chest X-Ray 05/09/20 05:00 IMPRESSION: INTERVAL REMOVAL OF THE ENDOTRACHEAL TUBE AND NASOGASTRIC TUBE. COPD. NO ACUTE RADIOGRAPHIC FINDING IN THE CHEST. Assessment and Plan - Diagnosis (1) Acute respiratory failure with hypoxia and hypercarbia Is this a current diagnosis for this admission?: Yes Plan: Was intubated on site by EMS. Chest x-ray negative for any acute abnormalities. Initially managed in ICU, transferred to medical floor 05/12/2020. Significant improvement of hypercarbia, still mildly hypoxic. History of oxygen dependent COPD, 3.5 L/min. Continue BiPAP support, supplemental oxygen, LAMA, LABA, ICS, IV steroids, flutter valve, incentive spirometry. (2) Alcohol withdrawal Is this a current diagnosis for this admission?: Yes Plan: Alert and oriented x4. No sign of acute withdrawal. Continue thiamine, folic acid, as needed benzodiazepines. DT precautions. (3) COPD (chronic obstructive pulmonary disease) Qualifiers: COPD type: unspecified COPD Qualified Code(s): J44.9 - Chronic obstructive pulmonary disease, unspecified Is this a current diagnosis for this admission?: Yes Plan: History of oxygen dependent COPD, 3.5 L/min at home. Unfortunately patient still smokes. Plan as per #1. (4) Current every day smoker Is this a current diagnosis for this admission?: Yes Plan: Counseled on quitting. NicoDerm patch provided. (5) Hypertension Is this a current diagnosis for this admission?: Yes Plan: Euvolemic. Normotensive. DC chlorthalidone as patient has electrolyte normalities. Continue ARB, amlodipine. Monitor vitals. Adjust meds as needed. Outpatient PCP follow-up. (6) Hypokalemia Is this a current diagnosis for this admission?: Yes Plan: Resolved. - Time Time Spent with patient: 35 or more minutes Smoking Cessation Education: 3 to 10 minutes Medications reviewed and adjusted accordingly: Yes Anticipated Discharge Disposition: Home, Self Care Anticipated Discharge Timeframe: within 24 hours
[2020-05-13] MEDS: MULTIVITAMIN ORAL LIQUID 60 ML NG SCH (11:28)
[2020-05-14] MEDS: AMOXICILLIN TR/POT CLAVULANATE 500-125 MG TAB PO SCH ×3 (05:17→21:29)
[2020-05-14 06:10] LABS: ALBUMIN 3.1 g/dL (3.5-5.0); ALKALINE PHOSPHATASE 39 U/L (38-126); ASPARTATE AMINO TRANSFERASE 16 U/L (17-59); BILIRUBIN,DIRECT 0.3 mg/dL (0.0-0.4); BILIRUBIN,TOTAL 0.4 mg/dL (0.2-1.3); BLOOD UREA NITROGEN 11 mg/dL (7-20); CALCIUM 9.4 mg/dL (8.4-10.2); CHLORIDE 87 mmol/L (98-107); GLUCOSE 130 mg/dL (75-110); POTASSIUM 4.2 mmol/L (3.6-5.0); TOTAL PROTEIN 5.6 g/dL (6.3-8.2)
[2020-05-14 06:17] LABS: ANION GAP 6 (5-19)
[2020-05-14 06:24] LABS: CARBON DIOXIDE 40 mmol/L (22-30)
[2020-05-14] MEDS: IPRATROPIUM/ALBUTEROL 0.5-2.5 MG/3 ML AMPUL NEB SCH ×3 (07:44→20:19)
[2020-05-14 08:56] LABS: ARTERIAL BLOOD BASE EXCESS 18.6 mmol/L; ARTERIAL BLOOD FIO2 4L; ARTERIAL BLOOD H2CO3 1.95 mmol/L (1.05-1.35); ARTERIAL BLOOD HCO3 45.6 mmol/L (20-24); ARTERIAL BLOOD O2 SATURATION 95.6 % (94-98); ARTERIAL BLOOD PCO2 64.8 mmHg (35-45); ARTERIAL BLOOD PH 7.47 (7.35-7.45); ARTERIAL BLOOD PO2 77.2 mmHg (80-100); ARTERIAL BLOOD TOTAL CO2 47.6 mmol/L (23-27)
--- NOTE | 2020-05-14 10:52 | PDOC PROGRESS REPORT ---
Subjective Progress Note for:: 05/14/20 Subjective:: As per admitting physician Mr. Nii Contreras is 65-year-old -Irish male was hospitalized on 05/07/2020 with COPD exacerbation. He presented to [facility] emergency department via EMS. He was initially supported with BiPAP but required intubation in the field. He has a long history of COPD and is on long-term oxygen therapy. He is a patient established with Dr. Shi. 05/14/2020. No acute events overnight, patient is still in moderate services, pursed breathing, accessory muscle use and tachypnea, unfortunate patient has end-stage emphysema and is still smokes patient has had pulmonary rehab in the past with no significant improvement, sees Dr. Shi pulmonology as outpatient, otherwise patient is alert and oriented x3, cooperative with physical examination, answering questions appropriately, denies any chest pain, nausea, vomiting, fever, chills, diarrhea, constipation or any urinary symptoms. Reason For Visit: COPD EXACERBATION REQUIRING INTUBATION Physical Exam Vital Signs: Temp Pulse Resp BP Pulse Ox 98.3 F 115 H 32 H 101/75 94 05/14/20 08:57 05/14/20 08:03 05/14/20 08:03 05/14/20 08:03 05/14/20 08:03 Pulse Oximeter Continuous Start: 05/12/20 12:28 Freq: RTQ4 Status: Active Protocol: Document 05/14/20 07:45 JDR (Rec: 05/14/20 08:06 JDR [id number]) Pulse Oximetry Assessment Equipment Usage Equipment Standby Continuous SpO2 Machine # 1 Intake & Output 05/13/20 05/14/20 05/15/20 06:59 06:59 06:59 Intake Total 1025 3736 Output Total 770 Balance 255 3736 Weight 83.8 kg 86.5 kg General appearance: PRESENT: no acute distress, well-developed, well-nourished, other - Moderate respiratory distress, pursed lip breathing. Head exam: PRESENT: atraumatic, normocephalic Neck exam: ABSENT: carotid bruit, JVD, lymphadenopathy, thyromegaly Respiratory exam: PRESENT: accessory muscle use, clear to auscultation lee, prolonged expiratory phas, tachypnea. ABSENT: rales, rhonchi, wheezes Cardiovascular exam: PRESENT: RRR. ABSENT: diastolic murmur, rubs, systolic murmur GI/Abdominal exam: PRESENT: normal bowel sounds, soft. ABSENT: distended, guarding, mass, organolmegaly, rebound, tenderness Neurological exam: PRESENT: alert, awake, oriented to person, oriented to place, oriented to time, oriented to situation, CN II-XII grossly intact. ABSENT: motor sensory deficit Results Laboratory Results: 05/13/20 05:02 05/14/20 04:44 05/14/20 05/14/20 04:44 08:40 Carbonic Acid 1.95 H HCO3/H2CO3 Ratio 23:1 ABG pH 7.47 H ABG pCO2 64.8 H ABG pO2 77.2 L ABG HCO3 45.6 H ABG O2 Saturation 95.6 ABG Base Excess 18.6 FiO2 4L Sodium 132.6 L Potassium 4.2 Chloride 87 L Carbon Dioxide 40 H* Anion Gap 6 BUN 11 Creatinine 0.46 L Est GFR ( Amer) > 60 Glucose 130 H Calcium 9.4 Magnesium 1.9 Total Bilirubin 0.4 AST 16 L Alkaline Phosphatase 39 Total Protein 5.6 L Albumin 3.1 L 05/07/20 05/08/20 05/08/20 16:34 01:41 04:35 Troponin I < 0.012 < 0.012 NT-Pro-B Natriuret Pep 74 05/09/20 20:25 Troponin I < 0.012 NT-Pro-B Natriuret Pep Impressions: Chest X-Ray 05/09/20 05:00 IMPRESSION: INTERVAL REMOVAL OF THE ENDOTRACHEAL TUBE AND NASOGASTRIC TUBE. COPD. NO ACUTE RADIOGRAPHIC FINDING IN THE CHEST. Assessment and Plan - Diagnosis (1) Acute respiratory failure with hypoxia and hypercarbia Is this a current diagnosis for this admission?: Yes Plan: History of severe emphysema on chronic supplemental oxygen therapy. 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 Has had pulmonary rehab in the past with significant improvement. Former heavy smoker. Stating that he quit 8 months ago. Was intubated on site by EMS. Chest x-ray negative for any acute abnormalities. CT chest showed extensive emphysematous changes. Not compliant with BiPAP due to claustrophobia. Initially managed in ICU, transferred to medical floor 05/12/2020. Significant improvement of hypercarbia, still mildly hypoxic. History of oxygen dependent COPD, 3.5 L/min. Continue BiPAP support, supplemental oxygen, LAMA, LABA, ICS, IV steroids, flutter valve, incentive spirometry. Outpatient PCP and pulmonology follow-up. (2) Alcohol withdrawal Is this a current diagnosis for this admission?: Yes Plan: Alert and oriented x4. No sign of acute withdrawal. Continue thiamine, folic acid, as needed benzodiazepines. DT precautions. (3) COPD (chronic obstructive pulmonary disease) Qualifiers: COPD type: unspecified COPD Qualified Code(s): J44.9 - Chronic obstructive pulmonary disease, unspecified Is this a current diagnosis for this admission?: Yes Plan: History of oxygen dependent COPD, 3.5 L/min at home. Unfortunately patient still smokes. Plan as per #1. (4) Current every day smoker Is this a current diagnosis for this admission?: Yes Plan: Counseled on quitting. NicoDerm patch provided. (5) Hypertension Is this a current diagnosis for this admission?: Yes Plan: Euvolemic. Normotensive. DC chlorthalidone as patient has electrolyte normalities. Continue ARB, amlodipine. Monitor vitals. Adjust meds as needed. Outpatient PCP follow-up. (6) Hypokalemia Is this a current diagnosis for this admission?: Yes Plan: Resolved. - Time Time Spent with patient: 35 or more minutes Smoking Cessation Education: 3 to 10 minutes Medications reviewed and adjusted accordingly: Yes Anticipated Discharge Disposition: Detention Facility Anticipated Discharge Timeframe: within 48 hours
[2020-05-14] MEDS: AMLODIPINE BESYLATE 5 MG TABLET PO SCH (11:34)
[2020-05-14] MEDS: LOSARTAN POTASSIUM 50 MG TABLET PO SCH (11:34)
[2020-05-14] MEDS: FOLIC ACID 1 MG TABLET PO SCH (11:35)
[2020-05-14] MEDS: THIAMINE HCL 100 MG TABLET PO SCH (11:35)
[2020-05-14] MEDS: SERTRALINE HCL 50 MG TABLET PO SCH (11:35)
[2020-05-14] MEDS: ENOXAPARIN SODIUM INJ 40 MG/0.4 ML DISP.SYRIN SUBCUT SCH (11:35)
[2020-05-14] MEDS: FLUTICASONE/UMECLIDIN/VILANTER 100-62.5-25 MCG/DOSE IH SCH (11:36)
[2020-05-14] MEDS: NICOTINE 21 MG/24 HR PATCH.TD24 TD SCH (11:36)
[2020-05-14] MEDS: METHYLPREDNISOLONE INJ 125 MG/2 ML SDV IV SCH ×2 (15:45→21:29)
[2020-05-14] MEDS: MULTIVITAMIN ORAL LIQUID 60 ML NG SCH (17:52)
[2020-05-15] MEDS: AMOXICILLIN TR/POT CLAVULANATE 500-125 MG TAB PO SCH ×3 (05:27→21:48)
[2020-05-15] MEDS: METHYLPREDNISOLONE INJ 125 MG/2 ML SDV IV SCH (05:27)
[2020-05-15 05:47] LABS: HEMATOCRIT 33.9 % (37.9-51.0); HEMOGLOBIN 11.2 g/dL (13.5-17.0); MEAN CORPUSCULAR HEMOGLOBIN 29.1 pg (27.0-33.4); MEAN CORPUSCULAR HGB CONC 33.1 g/dL (32.0-36.0); MEAN CORPUSCULAR VOLUME 88 fl (80-97); PLATELET COUNT 204 10^3/uL (150-450); RED BLOOD COUNT 3.85 10^6/uL (4.35-5.55); RED CELL DISTRIBUTION WIDTH 15.8 % (11.5-14.0); WHITE BLOOD COUNT 8.3 10^3/uL (4.0-10.5)
[2020-05-15 07:35] LABS: BLOOD UREA NITROGEN 12 mg/dL (7-20); CALCIUM 9.4 mg/dL (8.4-10.2); CHLORIDE 88 mmol/L (98-107); GLUCOSE 166 mg/dL (75-110)
[2020-05-15 07:45] LABS: CARBON DIOXIDE 42 mmol/L (22-30)
[2020-05-15 08:05] LABS: ANION GAP 4 (5-19)
--- NOTE | 2020-05-15 08:50 | PDOC PROGRESS REPORT ---
Subjective Progress Note for:: 05/15/20 Subjective:: As per admitting physician Mr. Nii Contreras is 65-year-old -[place] male was hospitalized on 05/07/2020 with COPD exacerbation. He presented to [facility] emergency department via EMS. He was initially supported with BiPAP but required intubation in the field. He has a long history of COPD and is on long-term oxygen therapy. He is a patient established with Dr. Shi. 05/14/2020. No acute events overnight, patient is still in moderate services, pursed breathing, accessory muscle use and tachypnea, unfortunate patient has end-stage emphysema and is still smokes patient has had pulmonary rehab in the past with no significant improvement, sees Dr. Shi pulmonology as outpatient, otherwise patient is alert and oriented x3, cooperative with physical examination, answering questions appropriately, denies any chest pain, nausea, vomiting, fever, chills, diarrhea, constipation or any urinary symptoms. 05/15/2020. No acute events overnight. Patient hypoxemia improving however his hypercarbia has not improved much, not sure if this is his baseline, patient still have persistent lip breathing however he is stating that he is feeling much better compared to yesterday and he would like to be discharged home as soon as possible, patient did used to live by the rehab and he does not want to be discharged to rehab anymore, stating that he lives in an apartment with a roommate who take good care of him, denies any fever, chills, nausea, vomiting, diarrhea, constipation or any urinary symptoms. P.o. tolerant, having normal bowel bladder movements. Reason For Visit: COPD EXACERBATION REQUIRING INTUBATION Physical Exam Vital Signs: Temp Pulse Resp BP Pulse Ox 97.6 F 88 20 119/80 88 L 05/15/20 08:00 05/15/20 08:00 05/15/20 08:00 05/15/20 08:00 05/15/20 08:00 Pulse Oximeter Continuous Start: 05/12/20 12:28 Freq: RTQ4 Status: Active Protocol: Document 05/14/20 20:20 PMU (Rec: 05/14/20 22:52 PMU [id number]) Pulse Oximetry Assessment Oxygen Saturation (92-100) 99 Oxygen Delivery Method Bi-pap Fraction of Inspired Oxygen (FIO2) 35 Equipment Usage Equipment Standby Continuous SpO2 Machine # 1 Intake & Output 05/14/20 05/15/20 05/16/20 06:59 06:59 06:59 Intake Total 3736 1090 Balance 3736 1090 Weight 86.5 kg 86.9 kg General appearance: PRESENT: no acute distress, mild distress - Pursed lip breathing, well-developed, well-nourished, other Head exam: PRESENT: atraumatic, normocephalic Respiratory exam: PRESENT: clear to auscultation lee, prolonged expiratory phas. ABSENT: rales, rhonchi, wheezes Cardiovascular exam: PRESENT: RRR. ABSENT: diastolic murmur, rubs, systolic murmur GI/Abdominal exam: PRESENT: normal bowel sounds, soft. ABSENT: distended, guarding, mass, organolmegaly, rebound, tenderness Neurological exam: PRESENT: alert, awake, oriented to person, oriented to place, oriented to time, oriented to situation, CN II-XII grossly intact. ABSENT: motor sensory deficit Results Laboratory Results: 05/15/20 04:09 05/15/20 06:49 05/14/20 05/15/20 05/15/20 08:40 04:09 04:09 WBC 8.3 RBC 3.85 L Hgb 11.2 L Hct 33.9 L MCV 88 MCH 29.1 MCHC 33.1 RDW 15.8 H Plt Count 204 Carbonic Acid 1.95 H HCO3/H2CO3 Ratio 23:1 ABG pH 7.47 H ABG pCO2 64.8 H ABG pO2 77.2 L ABG HCO3 45.6 H ABG O2 Saturation 95.6 ABG Base Excess 18.6 FiO2 4L Sodium Cancelled Potassium Cancelled Chloride Cancelled Carbon Dioxide Cancelled Anion Gap Cancelled BUN Cancelled Creatinine Cancelled Est GFR ( Amer) Cancelled Est GFR (Non-Af Amer) Cancelled Glucose Cancelled Calcium Cancelled Magnesium Cancelled 05/15/20 06:49 WBC RBC Hgb Hct MCV MCH MCHC RDW Plt Count Carbonic Acid HCO3/H2CO3 Ratio ABG pH ABG pCO2 ABG pO2 ABG HCO3 ABG O2 Saturation ABG Base Excess FiO2 Sodium 133.9 L Potassium 5.0 Chloride 88 L Carbon Dioxide 42 H* Anion Gap 4 L BUN 12 Creatinine 0.46 L Est GFR ( Amer) > 60 Est GFR (Non-Af Amer) Glucose 166 H Calcium 9.4 Magnesium 2.2 05/07/20 05/08/20 05/08/20 16:34 01:41 04:35 Troponin I < 0.012 < 0.012 NT-Pro-B Natriuret Pep 74 05/09/20 20:25 Troponin I < 0.012 NT-Pro-B Natriuret Pep Impressions: Chest X-Ray 05/09/20 05:00 IMPRESSION: INTERVAL REMOVAL OF THE ENDOTRACHEAL TUBE AND NASOGASTRIC TUBE. COPD. NO ACUTE RADIOGRAPHIC FINDING IN THE CHEST. Assessment and Plan - Diagnosis (1) Acute respiratory failure with hypoxia and hypercarbia Is this a current diagnosis for this admission?: Yes Plan: Patient reports significant improvement of respiratory symptoms compared to yesterday. ABG shows moderate improvement of hypoxemia, patient still hypercarbic however improving since yesterday. Patient probably hypercarbic at baseline. History of severe emphysema on chronic supplemental oxygen therapy. 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 Shi environmental protection specialist as outpatient. Has had pulmonary rehab in the past with significant improvement. Former heavy smoker. Stating that he quit 8 months ago. Was intubated on site by EMS. Chest x-ray negative for any acute abnormalities. CT chest showed extensive emphysematous changes. History of noncompliance with BiPAP due to claustrophobia, however patient has been compliant with his BiPAP for the last 2 days. Initially managed in ICU, transferred to medical floor 05/12/2020. History of oxygen dependent COPD, 3.5 L/min. Continue BiPAP support, supplemental oxygen, LAMA, LABA, ICS, IV steroids, flutter valve, incentive spirometry. Outpatient PCP and pulmonology follow-up. If patient hypoxemia and hypercarbia or at baseline patient could be discharged home tomorrow. Patient used to live in a rehab however he is adamantly against going back to rehab. Patient strongly encouraged to follow-up with his environmental protection specialist Dr. Mcclelland for evaluation of home BiPAP. (2) Alcohol withdrawal Is this a current diagnosis for this admission?: Yes Plan: Alert and oriented x4. No sign of acute withdrawal. Continue thiamine, folic acid, as needed benzodiazepines. DT precautions. (3) COPD (chronic obstructive pulmonary disease) Qualifiers: COPD type: unspecified COPD Qualified Code(s): J44.9 - Chronic obstructive pulmonary disease, unspecified Is this a current diagnosis for this admission?: Yes Plan: History of oxygen dependent COPD, 3.5 L/min at home. Unfortunately patient still smokes. Plan as per #1. (4) Current every day smoker Is this a current diagnosis for this admission?: Yes Plan: Patient is stating that he quit smoking 8 months ago. History of heavy alcohol and tobacco abuse. NicoDerm patch available. (5) Hypertension Is this a current diagnosis for this admission?: Yes Plan: Euvolemic. Normotensive. DC chlorthalidone as patient has electrolyte normalities. Continue ARB, amlodipine. Monitor vitals. Adjust meds as needed. Outpatient PCP follow-up. (6) Hypokalemia Is this a current diagnosis for this admission?: Yes Plan: Resolved. - Time Time Spent with patient: 25-34 minutes Smoking Cessation Education: 3 to 10 minutes Medications reviewed and adjusted accordingly: Yes Anticipated Discharge Disposition: Home with Home Health Anticipated Discharge Timeframe: within 24 hours
[2020-05-15] MEDS ORDERED: ACETAMINOPHEN 325 MG TABLET PO PRN (09:07)
[2020-05-15] MEDS: IPRATROPIUM/ALBUTEROL 0.5-2.5 MG/3 ML AMPUL NEB SCH ×3 (09:12→21:05)
[2020-05-15 10:11] LABS: ARTERIAL BLOOD BASE EXCESS 15.3 mmol/L; ARTERIAL BLOOD H2CO3 2.19 mmol/L (1.05-1.35); ARTERIAL BLOOD HCO3 43.5 mmol/L (20-24); ARTERIAL BLOOD O2 SATURATION 96.3 % (94-98); ARTERIAL BLOOD PH 7.39 (7.35-7.45); ARTERIAL BLOOD PO2 88.8 mmHg (80-100); ARTERIAL BLOOD TOTAL CO2 45.7 mmol/L (23-27)
[2020-05-15 10:19] LABS: ARTERIAL BLOOD PCO2 72.8 mmHg (35-45)
[2020-05-15] MEDS: MULTIVITAMIN ORAL LIQUID 60 ML PO SCH (10:46)
[2020-05-15] MEDS: SERTRALINE HCL 50 MG TABLET PO SCH (10:47)
[2020-05-15] MEDS: THIAMINE HCL 100 MG TABLET PO SCH (10:47)
[2020-05-15] MEDS: NICOTINE 21 MG/24 HR PATCH.TD24 TD SCH (10:47)
[2020-05-15] MEDS: FOLIC ACID 1 MG TABLET PO SCH (10:47)
[2020-05-15] MEDS: LOSARTAN POTASSIUM 50 MG TABLET PO SCH (10:47)
[2020-05-15] MEDS: ENOXAPARIN SODIUM INJ 40 MG/0.4 ML DISP.SYRIN SUBCUT SCH (10:48)
[2020-05-15] MEDS: FLUTICASONE/UMECLIDIN/VILANTER 100-62.5-25 MCG/DOSE IH SCH (10:49)
[2020-05-15] MEDS: METHYLPREDNISOLONE INJ 40 MG/1 ML SDV IV SCH ×2 (15:05→21:48)
[2020-05-16] MEDS: AMOXICILLIN TR/POT CLAVULANATE 500-125 MG TAB PO SCH (05:23)
[2020-05-16] MEDS: METHYLPREDNISOLONE INJ 40 MG/1 ML SDV IV SCH (05:23)
[2020-05-16 05:32] LABS: ARTERIAL BLOOD BASE EXCESS 9.8 mmol/L; ARTERIAL BLOOD H2CO3 1.57 mmol/L (1.05-1.35); ARTERIAL BLOOD HCO3 35.4 mmol/L (20-24); ARTERIAL BLOOD O2 SATURATION 97.6 % (94-98); ARTERIAL BLOOD PCO2 52.1 mmHg (35-45); ARTERIAL BLOOD PH 7.45 (7.35-7.45); ARTERIAL BLOOD PO2 97.6 mmHg (80-100)
[2020-05-16 05:34] LABS: ARTERIAL BLOOD FIO2 35%
[2020-05-16 05:55] LABS: ANION GAP 6 (5-19); BLOOD UREA NITROGEN 14 mg/dL (7-20); CALCIUM 9.3 mg/dL (8.4-10.2); CARBON DIOXIDE 39 mmol/L (22-30); CHLORIDE 89 mmol/L (98-107); GLUCOSE 134 mg/dL (75-110); POTASSIUM 5.1 mmol/L (3.6-5.0)
[2020-05-16] MEDS: IPRATROPIUM/ALBUTEROL 0.5-2.5 MG/3 ML AMPUL NEB SCH ×2 (07:52→13:31)
[2020-05-16] MEDS ORDERED: INFLUENZA QUAD (6MOS+) 2020-21 VAC 0.5 ML SYR IM ONE (08:00)
[2020-05-16] MEDS ORDERED: PREDNISONE 20 MG TABLET PO SCH (10:00)
[2020-05-16] MEDS: ENOXAPARIN SODIUM INJ 40 MG/0.4 ML DISP.SYRIN SUBCUT SCH (10:01)
[2020-05-16] MEDS: MULTIVITAMIN ORAL LIQUID 60 ML PO SCH (10:01)
[2020-05-16] MEDS: THIAMINE HCL 100 MG TABLET PO SCH (10:01)
[2020-05-16] MEDS: SERTRALINE HCL 50 MG TABLET PO SCH (10:02)
[2020-05-16] MEDS: FOLIC ACID 1 MG TABLET PO SCH (10:02)
[2020-05-16] MEDS: NICOTINE 21 MG/24 HR PATCH.TD24 TD SCH (10:02)
[2020-05-16] MEDS: LOSARTAN POTASSIUM 50 MG TABLET PO SCH (10:02)
[2020-05-16] MEDS: FLUTICASONE/UMECLIDIN/VILANTER 100-62.5-25 MCG/DOSE IH SCH (10:02)
--- NOTE | 2020-05-16 13:55 | PDOC DISCHARGE SUMMARY ---
Impression - Admit/DC Date/PCP Admission Date/Primary Care Provider: 05/07/20 18:10 EVELYN HIGUERA DO Discharge Date: 05/16/20 - Discharge Diagnosis (1) Acute on chronic respiratory failure with hypercapnia Is this a current diagnosis for this admission?: Yes (2) Acute respiratory failure with hypoxia and hypercarbia Is this a current diagnosis for this admission?: Yes (3) Alcohol abuse Is this a current diagnosis for this admission?: Yes (4) Alcohol withdrawal Is this a current diagnosis for this admission?: Yes (5) COPD (chronic obstructive pulmonary disease) Is this a current diagnosis for this admission?: Yes (6) COPD exacerbation Is this a current diagnosis for this admission?: Yes (7) Current every day smoker Is this a current diagnosis for this admission?: Yes (8) Hypertension Is this a current diagnosis for this admission?: Yes (9) Hypokalemia Is this a current diagnosis for this admission?: Yes (10) Dysphagia, unspecified Is this a current diagnosis for this admission?: Yes - Additional Information Resuscitation Status: Full Code Discharge Diet: Regular Discharge Activity: Activity As Tolerated, Balance Activity w/Rest Referrals: EVELYN HIGUERA DO [Primary Care Provider] - Follow up as needed Prescriptions: Prednisone [Deltasone 10 mg Tablet] 10 mg PO ASDIR #19 tablet Folic Acid [Folvite 1 mg Tablet] 1 mg PO DAILY #30 tablet Nicotine [Nicoderm 21 mg/24 Hr Transderm Patch] 1 each TD DAILY #30 patch.td24 Thiamine HCl [Thiamine 100 mg Tablet] 100 mg PO DAILY #30 tablet Fluticasone/Umeclidin/Vilanter [Trelegy 100-62.5-25 Mcg Ellipta 14 Dose/Dpi] 1 inh IH DAILY #1 inhaler Home Medications: Sertraline HCl [Zoloft 50 mg Tablet] 50 mg PO DAILY 05/08/20 Telmisartan 40 mg PO DAILY 05/08/20 Fluticasone/Umeclidin/Vilanter [Trelegy 100-62.5-25 Mcg Ellipta 14 Dose/Dpi] 1 inh IH DAILY #1 inhaler 05/16/20 Folic Acid [Folvite 1 mg Tablet] 1 mg PO DAILY #30 tablet 05/16/20 Nicotine [Nicoderm 21 mg/24 Hr Transderm Patch] 1 each TD DAILY #30 patch.td24 10/27/20 Prednisone [Deltasone 10 mg Tablet] 10 mg PO ASDIR #19 tablet 05/16/20 Thiamine HCl [Thiamine 100 mg Tablet] 100 mg PO DAILY #30 tablet 05/16/20 History of Present Illiness History of Present Illness: Per Admitting Physician: "As per admitting physician Mr. Nii Contreras is 65-year-old -[place] male was hospitalized on 05/07/2020 with COPD exacerbation. He presented to [facility] emergency department via EMS. He was initially supported with BiPAP but required intubation in the field. He has a long history of COPD and is on long-term oxygen therapy. He is a patient established with Dr. Shi." Hospital Course Hospital Course: Per previous physician: "As per admitting physician Mr. iNi Contreras is 65-year-old -[place] male was hospitalized on 05/07/2020 with COPD exacerbation. He presented to [facility] emergency department via EMS. He was initially supported with BiPAP but required intubation in the field. He has a long h istory of COPD and is on long-term oxygen therapy. He is a patient established with Dr. Shi. 05/14/2020. No acute events overnight, patient is still in moderate services, pursed breathing, accessory muscle use and tachypnea, unfortunate patient has end-stage emphysema and is still smokes patient has had pulmonary rehab in the past with no significant improvement, sees Dr. Shi pulmonology as outpatient, otherwise patient is alert and oriented x3, cooperative with physical examination, answering questions appropriately, denies any chest pain, nausea, vomiting, fever, chills, diarrhea, constipation or any urinary symptoms. 05/15/2020. No acute events overnight. Patient hypoxemia improving however his hypercarbia has not improved much, not sure if this is his baseline, patient st ill have persistent lip breathing however he is stating that he is feeling much better compared to yesterday and he would like to be discharged home as soon as possible, patient did used to live by the rehab and he does not want to be discharged to rehab anymore, stating that he lives in an apartment with a roommate who take good care of him, denies any fever, chills, nausea, vomiting, diarrhea, constipation or any urinary symptoms. P.o. tolerant, having normal bowel bladder movements." On day of admission, patient states he is breathing at baseline and plans to stop smoking and also stop drinking alcohol. He refuses to go to rehab and only wants to go home. He states he has good support at home and does not need any additional care. He did request a prescription for Trelegy as he states this worked much better than his other inhalers. He is discharged on a steroid taper. He is using his home dose oxygen at 4 L nasal cannula. I have placed a referral order for arrangement of BiPAP which patient states he will follow up with. Per previous physician: "(1) Acute respiratory failure with hypoxia and hypercarbiaresolved to baseline Is this a current diagnosis for this admission?: Yes Plan: Patient reports significant improvement of respiratory symptoms compared to yesterday. ABG shows moderate improvement of hypoxemia, patient still hypercarbic however improving since yesterday. Patient probably hypercarbic at baseline. History of severe emphysema on chronic supplemental oxygen therapy. 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 Shi wheel assembler as outpatient. Has had pulmonary rehab in the past with significant improvement. Former heavy smoker. Stating that he quit 8 months ago. Was intubated on site by EMS. Chest x-ray negative for any acute abnormalities. CT chest showed extensive emphysematous changes. History of noncompliance with BiPAP due to claustrophobia, however patient has been compliant with his BiPAP for the last 2 days. Initially managed in ICU, transferred to medical floor 05/12/2020. History of oxygen dependent COPD, 3.5 L/min. Continue BiPAP support, supplemental oxygen, LAMA, LABA, ICS, IV steroids, flutter valve, incentive spirometry. Outpatient PCP and pulmonology follow-up. discharged home Patient used to live in a rehab however he is adamantly against going back to rehab. Patient strongly encouraged to follow-up with his wheel assembler Dr. Mcclelland for evaluation of home BiPAP. (2) Alcohol withdrawalresolved Is this a current diagnosis for this admission?: Yes Plan: Alert and oriented x4. No sign of acute withdrawal. Continue thiamine, folic acid, as needed benzodiazepines. DT precautions. (3) COPD (chronic obstructive pulmonary disease)exacerbation resolved Qualifiers: COPD type: unspecified COPD Qualified Code(s): J44.9 - Chronic obstructive pulmonary disease, unspecified Is this a current diagnosis for this admission?: Yes Plan: History of oxygen dependent COPD, 3.5 L/min at home. Unfortunately patient still smokes. Plan as per #1. (4) Current every day smoker Is this a current diagnosis for this admission?: Yes Plan: Patient is stating that he quit smoking 8 months ago. History of heavy alcohol and tobacco abuse. NicoDerm patch available. Later stated he has actually continued to smoke until he was admitted to the hospital (5) Hypertension Is this a current diagnosis for this admission?: Yes Plan: Euvolemic. Normotensive. DC chlorthalidone as patient has electrolyte normalities. Continue ARB, amlodipine. Monitor vitals. Adjust meds as needed. Outpatient PCP follow-up. (6) Hypokalemia Is this a current diagnosis for this admission?: Yes Plan: Resolved. " Physical Exam Vital Signs: Temp Pulse Resp BP Pulse Ox 97.8 F 116 H 16 121/71 97 05/16/20 10:00 05/16/20 08:39 05/16/20 08:39 05/16/20 08:39 05/16/20 12:00 Pulse Oximeter Continuous Start: 05/12/20 12:28 Freq: RTQ4 Status: Active Protocol: Document 05/16/20 12:00 [facility] (Rec: 05/16/20 13:29 [facility] [id number]) Pulse Oximetry Assessment Oxygen Saturation (92-100) 97 Oxygen Flow Rate (L/min) 4 Oxygen Delivery Method Nasal Cannula Fraction of Inspired Oxygen (FIO2) 36 Equipment Usage Equipment in Use Continuous SpO2 Machine # 1 Intake & Output 05/15/20 05/16/20 05/17/20 06:59 06:59 06:59 Intake Total 1090 1560 100 Balance 1090 1560 100 Weight 86.9 kg 86 kg General appearance: PRESENT: no acute distress, well-developed, well-nourished Head exam: PRESENT: atraumatic, normocephalic Eye exam: PRESENT: conjunctiva pink. ABSENT: scleral icterus Mouth exam: PRESENT: moist Respiratory exam: PRESENT: clear to auscultation lee, decreased breath sounds - Notable bilaterally and diffusely. ABSENT: rales, rhonchi, wheezes Cardiovascular exam: PRESENT: RRR. ABSENT: diastolic murmur, rubs, systolic murmur GI/Abdominal exam: PRESENT: normal bowel sounds, soft. ABSENT: distended, guarding, mass, organolmegaly, rebound, tenderness Rectal exam: PRESENT: deferred Neurological exam: PRESENT: alert, awake, oriented to person, oriented to place, oriented to time, oriented to situation Psychiatric exam: PRESENT: appropriate affect, normal mood Skin exam: PRESENT: dry, intact, warm Results Laboratory Results: WBC 8.3 10^3/uL (4.0-10.5) 05/15/20 04:09 RBC 3.85 10^6/uL (4.35-5.55) L 05/15/20 04:09 Hgb 11.2 g/dL (13.5-17.0) L 05/15/20 04:09 Hct 33.9 % (37.9-51.0) L 05/15/20 04:09 MCV 88 fl (80-97) 05/15/20 04:09 MCH 29.1 pg (27.0-33.4) 05/15/20 04:09 MCHC 33.1 g/dL (32.0-36.0) 05/15/20 04:09 RDW 15.8 % (11.5-14.0) H 05/15/20 04:09 Plt Count 204 10^3/uL (150-450) 05/15/20 04:09 Lymph % (Auto) 13.0 % (13-45) 05/13/20 05:02 [place] % (Auto) 18.7 % (3-13) H 05/13/20 05:02 Eos % (Auto) 1.5 % (0-6) 05/13/20 05:02 Baso % (Auto) 0.2 % (0-2) 05/13/20 05:02 Absolute Neuts (auto) 5.6 10^3/uL (1.7-8.2) 05/13/20 05:02 Absolute Lymphs (auto) 1.1 10^3/uL (0.5-4.7) 05/13/20 05:02 Absolute Monos (auto) 1.6 10^3/uL (0.1-1.4) H 05/13/20 05:02 Absolute Eos (auto) 0.1 10^3/uL (0.0-0.6) 05/13/20 05:02 Absolute Basos (auto) 0.0 10^3/uL (0.0-0.2) 05/13/20 05:02 Seg Neutrophils % 66.6 % (42-78) 05/13/20 05:02 Carbonic Acid 1.57 mmol/L (1.05-1.35) H 05/16/20 05:15 HCO3/H2CO3 Ratio 22:1 05/16/20 05:15 ABG pH 7.45 (7.35-7.45) 05/16/20 05:15 ABG pCO2 52.1 mmHg (35-45) H 05/16/20 05:15 ABG pO2 97.6 mmHg (80-100) 05/16/20 05:15 ABG HCO3 35.4 mmol/L (20-24) H 05/16/20 05:15 ABG Total CO2 37.0 mmol/L (23-27) H 05/16/20 05:15 ABG O2 Saturation 97.6 % (94-98) 05/16/20 05:15 ABG Base Excess 9.8 mmol/L 05/16/20 05:15 VBG pH 7.33 (7.30-7.42) 05/11/20 05:55 VBG pCO2 90.3 mmHg (35-63) H* 05/11/20 05:55 VBG HCO3 46.5 mmol/L (20-32) H 05/11/20 05:55 VBG Base Excess 16.0 mmol/L 05/11/20 05:55 FiO2 35% 05/16/20 05:15 Sodium 133.6 mmol/L (137-145) L 05/16/20 04:26 Potassium 5.1 mmol/L (3.6-5.0) H 05/16/20 04:26 Chloride 89 mmol/L (98-107) L 05/16/20 04:26 Carbon Dioxide 39 mmol/L (22-30) H 05/16/20 04:26 Anion Gap 6 (5-19) 05/16/20 04:26 BUN 14 mg/dL (7-20) 05/16/20 04:26 Creatinine 0.45 mg/dL (0.52-1.25) L 05/16/20 04:26 Est GFR ( Amer) > 60 (>60) 05/16/20 04:26 Est GFR (Non-Af Amer) Cancelled 05/15/20 04:09 Est GFR (MDRD) Non-Af > 60 (>60) 05/16/20 04:26 Glucose 134 mg/dL (75-110) H 05/16/20 04:26 POC Glucose 115 mg/dL (70-110) H 05/11/20 17:39 Hemoglobin A1c % 5.7 % (4.7-6.0) 05/11/20 05:55 Lactic Acid 1.2 mmol/L (0.7-2.1) 05/07/20 22:50 Calcium 9.3 mg/dL (8.4-10.2) 05/16/20 04:26 Phosphorus 3.8 mg/dL (2.5-4.5) 05/09/20 04:13 Magnesium 2.2 mg/dL (1.6-2.3) 05/15/20 06:49 Total Bilirubin 0.4 mg/dL (0.2-1.3) 05/14/20 04:44 Direct Bilirubin 0.3 mg/dL (0.0-0.4) 05/14/20 04:44 Neonat Total Bilirubin Not Reportable 05/14/20 04:44 Neonat Direct Bilirubin Not Reportable 05/14/20 04:44 Neonat Indirect Bili Not Reportable 05/14/20 04:44 AST 16 U/L (17-59) L 05/14/20 04:44 ALT 17 U/L (<50) 05/14/20 04:44 Alkaline Phosphatase 39 U/L (38-126) 05/14/20 04:44 Troponin I < 0.012 ng/mL 05/09/20 20:25 NT-Pro-B Natriuret Pep 74 pg/mL (<125) 05/08/20 04:35 Total Protein 5.6 g/dL (6.3-8.2) L 05/14/20 04:44 Albumin 3.1 g/dL (3.5-5.0) L 05/14/20 04:44 Triglycerides 66 mg/dL (<150) 05/08/20 04:35 Cholesterol 245.33 mg/dL (0-200) H 05/08/20 04:35 LDL Cholesterol Direct 77 mg/dL (<100) 05/08/20 04:35 VLDL Cholesterol 13.0 mg/dL (10-31) 05/08/20 04:35 HDL Cholesterol 165 mg/dL (>40) 05/08/20 04:35 EGFR Cancelled 05/15/20 04:09 TSH 0.50 uIU/mL (0.47-4.68) 05/11/20 05:55 Serum Alcohol 63 mg/dL (NONE DETECTED) 05/07/20 16:34 COVID-19 Source See comment 05/13/20 19:44 COVID-19 (SID) Not Detected (Not Detect) 05/13/20 19:44 05/07/20 05/08/20 05/08/20 16:34 01:41 04:35 Troponin I < 0.012 < 0.012 NT-Pro-B Natriuret Pep 74 05/09/20 20:25 Troponin I < 0.012 NT-Pro-B Natriuret Pep Impressions: Chest X-Ray 05/07/20 16:32 IMPRESSION: Hyperinflated lungs which can be seen with obstructive lung disease. No focal consolidation or pleural effusion. Endotracheal tube is in the midthoracic trachea. Esophagogastric tube tip is below the diaphragm likely in the stomach with side hole in the distal esophagus. Chest X-Ray 05/09/20 05:00 IMPRESSION: INTERVAL REMOVAL OF THE ENDOTRACHEAL TUBE AND NASOGASTRIC TUBE. COPD. NO ACUTE RADIOGRAPHIC FINDING IN THE CHEST. Plan Plan of Treatment: Follow-up PCP Follow-up with pulmonology Follow-up with psychiatry Steroid taper Time Spent: Greater than 30 Minutes Stroke Is this a Stroke Patient?: No Acute Heart Failure Is this a Heart Failure Patient?: No
[2020-05-16 14:03] VITALS: BP 119/80
== END 2020-05-16 14:47 | disposition home health service (06) | DRG 208 ==
LOC: ER 16:23 → EH 18:10 → ICU 18:54 → 4S 05-10 16:35 → ICU 05-11 09:11 → 4N 05-12 14:37
PROVIDERS: ADMIT Anesthesiology; ATTEND Internal Medicine
PROC: 5A1935Z Respiratory Ventilation, Less than 24 Consecutive Hours (ICD-10-PCS; principal; 2020-05-07)
PROC: 5A09557 Assistance with Respiratory Ventilation, Greater than 96 Consecutive Hours, Continuous Positive Airway Pressure (ICD-10-PCS; 2020-05-08)
DX: J43.9 Emphysema, unspecified (principal); J96.22 Acute and chronic respiratory failure with hypercapnia; J96.01 Acute respiratory failure with hypoxia; F10.139 Alcohol abuse with withdrawal, unspecified; Z78.1 Physical restraint status; Y90.3 Blood alcohol level of 60-79 mg/100 ml; Z20.828 Contact with and (suspected) exposure to other viral communicable diseases; I10 Essential (primary) hypertension; E87.6 Hypokalemia; R13.10 Dysphagia, unspecified; F17.210 Nicotine dependence, cigarettes, uncomplicated; I25.10 Atherosclerotic heart disease of native coronary artery without angina pectoris; Z79.899 Other long term (current) drug therapy; Z99.81 Dependence on supplemental oxygen; Z79.52 Long term (current) use of systemic steroids; Z88.8 Allergy status to other drugs, medicaments and biological substances; Z91.040 Latex allergy status; Z79.51 Long term (current) use of inhaled steroids; Z91.14 Patient's other noncompliance with medication regimen
CPT/HCPCS: 36415; 36600; 71045; 80048; 80053; 80061; 80307; 82803; 82962; 83036; 83605; 83735; 83880; 84100; 84443; 84484; 85025; 85027; 87040; 87070; 87077; 87150; 87186; 87205; 87635; 93005; 93010; 94002; 94003; 94640; 94660; 94762; 99291; 99292; C9803; J0360; J1650; J1815; J1940; J2060; J2250; J2270; J2560; J2704; J2920; J2930; J3411; J3480; J3490; J7050; J7120; J7512; S0028

== ENCOUNTER → 2020-07-12 | Outpatient (CLI) | payer MEDICARE, MEDICAID ==
--- NOTE | 2020-07-12 12:06 | RADIOLOGY REPORT (SQ) ---
EXAM DESCRIPTION: U/S ABDOMEN LIMITED W/O DOP IMAGES COMPLETED DATE/TIME: 07/12/2020 11:51 am REASON FOR STUDY: (R10.31)RIGHT LOWER QUADRANT PAIN K86.2 CYST OF PANCREAS R10.31 RIGHT LOWER QUAD RANT PAIN COMPARISON: None. TECHNIQUE: Static and real time slater scale imaging performed of the right lower quadrant with additi onal compression maneuvers. LIMITATIONS: None. FINDINGS: APPENDIX: Not visualized. BOWEL: Active peristalsis with fluid in the bowel. COMPRESSION MANEUVERS: No rebound pain with compression. OTHER: No other significant finding. IMPRESSION: Negative right lower quadrant ultrasound. No evidence of hernia. TECHNICAL DOCUMENTATION: JOB ID: [id number] 2010 [employer]- All Rights Reserved Reading location - IP/workstation name: [email or web address]
--- NOTE | 2020-07-13 13:19 | RADIOLOGY REPORT (SQ) ---
EXAM DESCRIPTION: MRI ABDOMEN COMBO IMAGES COMPLETED DATE/TIME: 07/12/2020 11:17 am REASON FOR STUDY: (K86.2)CYST OF PANCREAS K86.2 CYST OF PANCREAS R10.31 RIGHT LOWER QUADRANT PAIN COMPARISON: Abdominal ultrasound dated 10/31/2016, report only. No images available. TECHNIQUE: Multiplanar multisequence imaging performed without and with contrast including sagittal, axial and coronal T2, axial T1, axial gradient fat sat T1, axial, sagittal and coronal fat sat T1 po st contrast. CONTRAST TYPE AND DOSE: 20 mL Prohance. RENAL FUNCTION: Not indicated. ACR Type II contrast agent associated with few, if any, unconfounded cases of NSF LIMITATIONS: None. FINDINGS: LIVER: Normal size. No masses. No dilated ducts. CBD normal. SPLEEN: Normal size. No focal lesions. PANCREAS: Adjacent to, but not appearing to communicate with common the pancreatic duct at the level of the body, there is a 4 x 4 x 4 mm T2 hyperintense, T1 hypointense, and nonenhancing focus which sanna oglesby correlates to findings described on October 2016 ultrasound report. The pancreas is otherwise nor mal in appearance. No pancreatic duct dilatation. No mass. No inflammatory changes. GALLBLADDER: No masses. No stones. No gallbladder wall thickening or pericholecystic fluid. ADRENAL GLANDS: No significant masses or asymmetry. RIGHT KIDNEY AND URETER: No masses. No hydronephrosis. LEFT KIDNEY AND URETER: No masses. No hydronephrosis. AORTA AND VESSELS: Infrarenal abdominal aortic aneurysm, measures on the order of 5.3 x 5.0 cm and ex tending into the left iliac artery, incompletely characterized. Review of 2017 ultrasound report ind icates this measures on the order of 4 cm diameter at that time. RETROPERITONEUM: No retroperitoneal adenopathy, hemorrhage or masses. BOWEL: No visualized masses. No inflammation. No significant dilatation. ABDOMINAL WALL AND PERITONEUM: Small fat containing umbilical hernia. No abdominal wall masses. BONES: No acute or significant findings. OTHER: No other significant finding. IMPRESSION: 1. 4 x 4 x 4 mm nonenhancing cyst within the body of the pancreas demonstrates long-sta nding stability by report. No further imaging follow-up is recommended. 2. 5.3 x 5.0 cm infrarenal abdominal aortic aneurysm with extension into the left iliac artery, inco mpletely characterized on today's examination. This represents an increase in size by report relativ e to 2017 ultrasound imaging. Recommend correlation with historical imaging monitoring. Recommend o btaining any prior comparison imaging for upload into the local PACS archive and performing follow-up CTA of the abdominal aorta for continued surveillance. TECHNICAL DOCUMENTATION: JOB ID: [id number] 2010 [employer]- All Rights Reserved Reading location - IP/workstation name: [email or web address]
== END ==
LOC: RAD 10:19
PROVIDERS: ATTEND Family Medicine
DX: K86.2 Cyst of pancreas (principal); R10.31 Right lower quadrant pain
CPT/HCPCS: 82565; 74183; 76705; A9576